=== PATIENT | male | born 1960 | race African-American/Black ===

== ENCOUNTER 2016-04-22 04:03 | Observation (INO) | payer MEDICAID, OTHER ==
[2016-04-22] VITALS (7 sets, daily range): BP systolic 105–138; BP diastolic 64–89; PULSE 78–99; RESP 18; TEMP 97.4–98.3; O2SAT 95–99
[~2016-04-22] VITALS: Ht 182.9 cm; Wt 85.5 kg
--- NOTE | 2016-04-22 04:25 | PD ---
HPI Chief Complaint: Chest Pain Time Seen by Provider: 04:20 Travel History International Travel<30 days: No Contact w/Intl Traveler<30days: No Traveled to known affect area: No History of Present Illness HPI The patient is a 56-year-old male who presents to the [facility] emergency department with a history of left-sided chest pain that he reports began 1 hour prior to arrival. He reports that it awoke him from sound sleep. He reports the pain is sharp in character. He denies having any radiation of the pain. He reports that he does have associated shortness of breath. He denies having any sweating or vomiting with this. He reports that the pain was initially 9 out of 10 in severity. After 1 nitroglycerin the pain level went down to an 8 out of 10 in severity. The patient was brought in by ambulance services and was also given 162 mg of aspirin by mouth. Patient's blood sugar prior to arrival was 79. The patient reports that he feels dizzy. The patient has a recent history of being admitted to the hospital at [facility] in [place] for congestive heart failure and liver failure. The patient reports that he quit drinking alcohol month ago. He reports that he quit smoking yesterday. The patient reports that he has a history of marijuana and crack use in the past, however he has not used any illicit drugs for the last year and a half. The patient denies any recent fevers, worsening cough, congestion, neck pain, abdominal pain, vomiting, diarrhea, urinary symptoms, or neurologic symptoms. PFSH Past Medical History Narrative Medical The patient's past medical history is significant for elevated liver enzymes, prior history of alcohol abuse, history of congestive heart failure. The patient denies any prior history of myocardial infarction. He denies ever having any stents placed. He has not had a cardiac catheterization. The patient has a history of hypertension, cirrhosis, hyperlipidemia, acid reflux, and renal insufficiency. High Cholesterol: Yes Cirrhosis: Yes Diminished Hearing: No GERD: Yes Hypertension: Yes Medical other: Yes (renal insufficiency) Influenza Vaccination: No Past Surgical History Narrative Surgical The patient denies any past surgical history. Social History Alcohol Use: No Tobacco Use: Yes Substance Use: No Allergies-Medications (Allergen,Severity, Reaction): Coded Allergies: Flu Vaccine (Verified Allergy, Unknown, 04/22/16) Reported Meds & Prescriptions Reported Meds & Active Scripts Active Reported Thiamine (Thiamine HCl) 100 Mg Tab 100 Mg PO DAILY Spironolactone 25 Mg Tab 25 Mg PO DAILY Metoprolol Succinate ER 24 HR (Metoprolol Succinate) 25 Mg Tab 25 Mg PO DAILY Lisinopril 5 Mg Tab 5 Mg PO DAILY Lactulose Liq (Lactulose (Encephalopathy) Liq) 19 Gm/15 Ml Soln 15 Gm PO TID Furosemide 40 Mg Tab 40 Mg PO DAILY Folic Acid 5 Mg Cap 1 Mg PO DAILY Atorvastatin (Atorvastatin Calcium) 40 Mg Tab 40 Mg PO HS Aspirin 81 Mg Tabdr 81 Mg PO DAILY Review of Systems Except as stated in HPI: all other systems reviewed are Neg General / Constitutional: No: Fever Eyes: No: Visual changes HENT: No: Headaches Cardiovascular: Positive: Chest Pain or Discomfort, Dyspnea on exertion, No: Diaphoresis Respiratory: No: Shortness of Breath Gastrointestinal: No: Nausea, Vomiting, Diarrhea, Abdominal Pain Genitourinary: No: Dysuria Musculoskeletal: No: Pain Skin: No Rash Neurologic: No: Weakness Psychiatric: No: Depression Endocrine: No: Polydipsia Hematologic/Lymphatic: No: Easy Bruising Physical Exam Narrative General: The patient is well-developed well-nourished male in no acute distress. Head and Neck exam: Head is normocephalic atraumatic. Eyes: Pupils are equal round and reactive to light. Nose: Midline septum with pink mucous membranes Mouth: Dentition unremarkable. Moist mucus membranes. Posterior oropharynx is not erythematous. No tonsillar hypertrophy. Uvula midline. Airway patent. Neck: No palpable lymphadenopathy. No nuchal rigidity. No thyromegaly. Cardiovascular: Regular rate and rhythm without murmurs, gallops, or rubs. No pulse deficit to the extremities on simultaneous auscultation and palpation of his radial artery. Lungs: Clear to auscultation bilaterally. No wheezes, rhonchi, or rales. Abdomen: Soft, without tenderness to palpation in all 4 quadrants of the abdomen. No guarding, rebound, or rigidity. Normal bowel sounds are audible. Extremities: No clubbing, cyanosis, or edema. 2+ pulses in all 4 extremities. No calf tenderness on palpation. Back: No spinous process tenderness to palpation. No costovertebral angle tenderness to palpation. Neurologic Exam: Grossly nonfocal. Skin Exam: No rash noted. Intact skin that is warm and dry. Data Data Last Documented VS Vital Signs Date Time Temp Pulse Resp B/P Pulse Ox O2 Delivery O2 Flow Rate FiO2 04/22/16 04:08 98.3 84 18 105/66 98 Orders Electrocardiogram (04/22/16 04:20) B-Type Natriuretic Peptide (04/22/16 04:20) Ckmb (Isoenzyme) Profile (04/22/16 04:20) Complete Blood Count With Diff (04/22/16 04:20) Comprehensive Metabolic Panel (04/22/16 04:20) Magnesium (Mg) (04/22/16 04:20) Prothrombin Time / Inr (Pt) (04/22/16 04:20) Act Partial Throm Time (Ptt) (04/22/16 04:20) Troponin I (04/22/16 04:20) Lipase (04/22/16 04:20) Chest, Single Ap (04/22/16 04:20) Ecg Monitoring (04/22/16 04:20) Bilateral Bp Monitoring (04/22/16 04:20) Iv Access Insert/Monitor (04/22/16 04:20) Oximetry (04/22/16 04:20) Oxygen Administration (04/22/16 04:20) Nitroglycerin 2% Oint (Nitroglycerin 2% (04/22/16 04:30) Sodium Chloride 0.9% Flush (Ns Flush) (04/22/16 04:30) Ammonia (04/22/16 04:22) Admit Order (Ed Use Only) (04/22/16 06:35) Labs Laboratory Tests Test 04/22/16 04:30 White Blood Count 4.2 TH/MM3 Red Blood Count 3.67 MIL/MM3 Hemoglobin 12.0 GM/DL Hematocrit 35.6 % Mean Corpuscular Volume 97.1 FL Mean Corpuscular Hemoglobin 32.7 PG Mean Corpuscular Hemoglobin 33.7 % Concent Red Cell Distribution Width 14.6 % Platelet Count 195 TH/MM3 Mean Platelet Volume 8.5 FL Neutrophils (%) (Auto) 49.7 % Lymphocytes (%) (Auto) 34.1 % Monocytes (%) (Auto) 8.5 % Eosinophils (%) (Auto) 6.9 % Basophils (%) (Auto) 0.8 % Neutrophils # (Auto) 2.1 TH/MM3 Lymphocytes # (Auto) 1.4 TH/MM3 Monocytes # (Auto) 0.4 TH/MM3 Eosinophils # (Auto) 0.3 TH/MM3 Basophils # (Auto) 0.0 TH/MM3 CBC Comment DIFF FINAL Differential Comment Prothrombin Time 12.4 SEC Prothromb Time International 1.1 RATIO Ratio Activated Partial 28.2 SEC Thromboplast Time Sodium Level 140 MEQ/L Potassium Level 4.3 MEQ/L Chloride Level 102 MEQ/L Carbon Dioxide Level 32.6 MEQ/L Anion Gap 5 MEQ/L Blood Urea Nitrogen 13 MG/DL Creatinine 1.00 MG/DL Estimat Glomerular Filtration 77 ML/MIN Rate Random Glucose 83 MG/DL Calcium Level 8.7 MG/DL Magnesium Level 2.1 MG/DL Total Bilirubin 1.9 MG/DL Aspartate Amino Transf 25 U/L (AST/SGOT) Alanine Aminotransferase 21 U/L (ALT/SGPT) Alkaline Phosphatase 188 U/L Ammonia 35 MCMOL/L Total Creatine Kinase 60 U/L Troponin I 0.05 NG/ML B-Type Natriuretic Peptide 1990 PG/ML Total Protein 7.0 GM/DL Albumin 2.8 GM/DL Lipase 234 U/L [facility] Medical Decision Making Medical Screen Exam Complete: Yes Emergency Medical Condition: Yes Medical Record Reviewed: Yes Interpretation(s) Last Impressions Chest X-Ray 04/22/16 0420 Signed Impressions: Service Date/Time: Friday, April 22, 2016 05:25 - CONCLUSION: No acute disease. Adithya Esparza MD Differential Diagnosis Acute coronary syndrome, versus congestive heart failure exacerbation, versus pleurisy, versus pneumonia, versus acid reflux Narrative Course During the course of the patients emergency department visit, the patients history, examination, and differential diagnosis were reviewed with the patient. The patient had IV access obtained and blood work sent for analysis. The patient was on a electric meter tester shop with oximetry and blood pressure monitoring. An EKG was done on arrival. The patient's EKG shows a sinus rhythm with a first-degree AV block, no acute ST segment elevation is noted, nonspecific T-wave abnormalities are noted, T waves are inverted in lead 1, aVL , V5, V6. The patient was provided nitroglycerin 1 inch the chest wall. The patient was given aspirin by ambulance services prior to arrival, 162 mg by mouth. The patients laboratory studies were reviewed and remarkable for a white count of 4.2, hemoglobin 12, platelets 195 with 8.5 monocytes, CMP is remarkable for CO2 of 32.6, GFR 77, total bilirubin 1.9, alkaline phosphatase 188, CPK 60, troponin I 0.05, BNP is 1990, ammonia level XXXV, lipase 234, PT PTT unremarkable. Radiology studies were reviewed and remarkable for a chest x-ray that shows no acute abnormality. The patient will be admitted to the hospital for continued evaluation and treatment, rule out serial cardiac enzyme protocol. The patient was agreeable with this plan. The patients results were discussed with the patient, including the plan of care. I explained that further testing and/ or monitoring is indicated based on the patients history, examination, and/ or laboratory findings. Therefore, I recommended admission for additional evaluation. The patient expressed understanding and was agreeable with this plan. The patient was admitted to the hospital in stable condition and [facility] Physician Communication Physician Communication The patient's case was discussed with Dr. Martinez who did agree to admit the patient for further evaluation and treatment at this time. Diagnosis Primary Impression: Chest pain at rest Additional Impression: History of congestive heart failure Admitting Information Admitting Physician Requests: Observation Claudia Espinal MD Apr 22, 2016 04:25
[2016-04-22] MEDS ORDERED: NITROGLYCERIN 2% OINT 1 GM PACKET TOP ONE (04:30)
[2016-04-22] MEDS ORDERED: SODIUM CHLORIDE 0.9% FLUSH 5 ML FLUSH IVF PRN (04:30)
[2016-04-22] MEDS ORDERED: FURO40TA PO (04:41)
[2016-04-22] MEDS ORDERED: FOLI5CAP PO (04:41)
[2016-04-22] MEDS ORDERED: METO25TA6 PO (04:41)
[2016-04-22] MEDS ORDERED: LACT10SO27 PO (04:41)
[2016-04-22] MEDS ORDERED: ATOR40TA16 PO (04:41)
[2016-04-22] MEDS ORDERED: ASPI1TAB69 PO (04:41)
[2016-04-22] MEDS ORDERED: LISI-519 PO (04:41)
[2016-04-22] MEDS ORDERED: THIA100T PO (04:41)
[2016-04-22] MEDS ORDERED: SPIR25TA PO (04:41)
[2016-04-22 04:44] LABS: AUTOMATED NEUTROPHIL # 2.1 TH/MM3 (1.8-7.7); BASOPHIL % 0.8 % (0.0-2.0); EOSINOPHIL # 0.3 TH/MM3 (0-0.4); EOSINOPHIL % 6.9 % (0.0-4.0); HEMATOCRIT 35.6 % (39.0-51.0); HEMO FLAGS DIFF FINAL; LYMPH % 34.1 % (9.0-44.0); LYMPHOCYTE # 1.4 TH/MM3 (1.0-4.8); MEAN CELL VOLUME 97.1 FL (80.0-100.0); MEAN CORPUSCULAR HEMOGLOBIN 32.7 PG (27.0-34.0); MEAN CORPUSCULAR HGB CONC 33.7 % (32.0-36.0); MONO % 8.5 % (0.0-8.0); NEUT % 49.7 % (16.0-70.0); PLATELET COUNT 195 TH/MM3 (150-450); RED BLOOD COUNT 3.67 MIL/MM3 (4.50-5.90); RED CELL DISTRIBUTION WIDTH 14.6 % (11.6-17.2); WHITE BLOOD COUNT 4.2 TH/MM3 (4.0-11.0)
[2016-04-22 05:01] LABS: ALT (GPT) 21 U/L (12-78); ANION GAP 5 MEQ/L (5-15); AST (GOT) 25 U/L (15-37); BICARBONATE 32.6 MEQ/L (21.0-32.0); BLOOD UREA NITROGEN 13 MG/DL (7-18); CHLORIDE 102 MEQ/L (98-107); GLOMERULAR FILTRATION RATE 77 ML/MIN (>89); MAGNESIUM 2.1 MG/DL (1.5-2.5); POTASSIUM 4.3 MEQ/L (3.5-5.1); SODIUM (NA) 140 MEQ/L (136-145)
[2016-04-22 05:02] LABS: APTT (PATIENT) 28.2 SEC (24.3-30.1); INTERNATIONAL NORMALIZED RATIO 1.1 RATIO; PROTHROMBIN TIME - PATIENT 12.4 SEC (9.8-11.6)
[2016-04-22 05:06] LABS: ALKALINE PHOSPHATASE 188 U/L (45-117); TOTAL BILIRUBIN ADULT 1.9 MG/DL (0.2-1.0)
[2016-04-22 05:11] LABS: CREATINE KINASE 60 U/L (39-308)
--- NOTE | 2016-04-22 05:39 | RADRPT ---
EXAM DATE/TIME: 04/22/2016 05:25 [place] COMPARISON: No previous studies available for comparison. INDICATIONS : Chest pain this morning. MEDICAL HISTORY : None. SURGICAL HISTORY : None. ENCOUNTER: Initial ACUITY: 1 day PAIN SCORE: 7/10 LOCATION: Bilateral chest FINDINGS: Cardiomegaly. Clear lungs. Osseous structures are intact. CONCLUSION: No acute disease. Adithya Esparza MD on April 22, 2016 at 5:37 Board Certified Radiologist. This report was verified electronically.
[2016-04-22] MEDS ORDERED: ACETAMINOPHEN 325 MG TAB PO PRN (07:00)
[2016-04-22] MEDS ORDERED: ONDANSETRON HCL 4 MG/2 ML VIAL IVP PRN (07:00)
[2016-04-22] MEDS ORDERED: ACETAMINOPHEN/HYDROcodone 325 MG/5 MG TAB PO PRN (07:00)
[2016-04-22] MEDS ORDERED: BISACODYL 10 MG SUPP PR PRN (07:00)
[2016-04-22] MEDS ORDERED: SODIUM CHLORIDE 0.9% FLUSH 5 ML FLUSH FLUSH PRN (07:00)
[2016-04-22] MEDS ORDERED: MORPHINE SULFATE 4 MG/ML INJ IV PRN (07:00)
[2016-04-22] MEDS ORDERED: METOPROLOL SUCCINATE 25 MG EXTENDED RELEASE TAB PO SCH (09:00)
[2016-04-22] MEDS ORDERED: LISINOPRIL 5 MG TAB PO SCH (09:00)
--- NOTE | 2016-04-22 09:18 | HHI.HP ---
[facility] Service [facility] Primary Care Physician No Primary Care Physician Admission Diagnosis Cp ro HI, h/o CHF Diagnoses: Chief Complaint: chest pain, shortness of breath Travel History International Travel<30 Days: No Contact w/Intl Traveler <30 Da: No Traveled to Known Affected Are: No History of Present Illness 56-year-old male with history of recent diagnosis of CHF, hepatitis, cirrhosis, HTN, HLD presents with acute onset of chest pain and shortness of breath that awoke him from his sleep last night. The patient is not the best historian. He locates the chest pain to the left anterior chest, no radiation, described as a sharp 9/10 ache, lasts ~5minutes, associated with palpitations, shortness of breath, lightheadedness, but no nausea/vomiting/diaphoresis. Denies fevers/ chills. He reports nonproductive cough. He was given nitro/aspirin en route with [facility] which relieved his pain. He is currently chest pain free. He reports he was recently hospitalized 1 month ago at [facility] for liver failure and heart failure. He is not sure which tests he had done at [facility]. He has no other medical complaints at this time. He does not follow with any local physicians/communications attendant. He reports compliance with all of his medications. Review of Systems Constitutional: COMPLAINS OF: Dizziness, DENIES: Diaphoretic episodes, Fever, Chills Endocrine: DENIES: Polydipsia, Polyuria, Polyphagia Eyes: DENIES: Blurred vision, Vision loss, Double Vision Ears, nose, mouth, throat: DENIES: Throat pain, Running Nose, Odynophagia Respiratory: COMPLAINS OF: Cough, Shortness of breath, DENIES: Wheezing, Sputum production Cardiovascular: COMPLAINS OF: Chest pain, Palpitations, Dyspnea on Exertion, Lower Extremity Edema, DENIES: Syncope Gastrointestinal: DENIES: Abdominal pain, Constipation, Diarrhea, Nausea, Vomiting Genitourinary: DENIES: Urinary frequency, Urgency, Dysuria Musculoskeletal: DENIES: Back pain, Neck pain Integumentary: DENIES: Pruritus, Rash Hematologic/lymphatic: DENIES: Bruising, Lymphadenopathy Immunologic/allergic: DENIES: Eczema, Urticaria Neurologic: COMPLAINS OF: Headache, DENIES: Abnormal gait, Localized weakness , Paresthesias Psychiatric: DENIES: Anxiety, Depression Past Family Social History Past Medical History hepatitis cirrhosis headaches hypertension hyperlipidemia CHF Past Surgical History Denies any prior surgeries. Reported Medications Thiamine (Thiamine HCl) 100 Mg Tab 100 Mg PO DAILY Spironolactone 25 Mg Tab 25 Mg PO DAILY Metoprolol Succinate ER 24 HR (Metoprolol Succinate) 25 Mg Tab 25 Mg PO DAILY Lisinopril 5 Mg Tab 5 Mg PO DAILY Lactulose Liq (Lactulose (Encephalopathy) Liq) 19 Gm/15 Ml Soln 15 Gm PO TID Furosemide 40 Mg Tab 40 Mg PO DAILY Folic Acid 5 Mg Cap 1 Mg PO DAILY Atorvastatin (Atorvastatin Calcium) 40 Mg Tab 40 Mg PO HS Aspirin 81 Mg Tabdr 81 Mg PO DAILY Allergies: Coded Allergies: Flu Vaccine (Verified Allergy, Unknown, 04/22/16) Active Ordered Medications Current Medications Medications (Trade) Dose Ordered Sig/Harish Route Start Time Stop Time Status Last Admin (NS Flush) 2 ml UNSCH PRN FLUSH 04/22/16 07:00 (NS Flush) 2 ml BID FLUSH 04/22/16 09:00 04/22/16 09:26 (Zofran Inj) 4 mg Q6H PRN IVP 04/22/16 07:00 (Dulcolax Supp) 10 mg DAILY PRN DC 04/22/16 07:00 (Tylenol) 650 mg Q6H PRN PO 04/22/16 07:00 ([place] 5-325 Mg) 1 tab Q4H PRN PO 04/22/16 07:00 (Morphine Inj) 2 mg Q3H PRN IV 04/22/16 07:00 (Ecotrin Ec) 81 mg DAILY PO 04/22/16 09:00 04/22/16 09:25 (Lipitor) 40 mg HS PO 04/22/16 21:00 (Folate) 1 mg DAILY PO 04/22/16 09:00 04/22/16 09:26 (Lasix) 40 mg DAILY PO 04/22/16 09:00 (Prinivil) 5 mg DAILY PO 04/22/16 09:00 (Toprol Xl) 25 mg DAILY PO 04/22/16 09:00 (Aldactone) 25 mg DAILY PO 04/22/16 09:00 (Vitamin B1) 100 mg DAILY PO 04/22/16 09:00 04/22/16 09:28 (Lactulose Liq) 15 ml TID PO 04/22/16 09:00 04/22/16 09:26 (Imdur) 30 mg DAILY@07 PO 04/23/16 10:00 UNV Family History Father with cancer Mother with diabetes, HTN, HLD Sister with diabetes Social History Tobacco use, smokes 1 PPD since age 13, he's trying to cut back Prior heavy alcohol use, 12+ beers a day, quit alcohol use 1 month ago just prior to last hospitalization Prior marijuana and crack use, quit over 1.5years ago Physical Exam Vital Signs Vital Signs Date Time Temp Pulse Resp B/P Pulse Ox O2 Delivery O2 Flow Rate FiO2 04/22/16 08:52 78 18 108/72 97 Room Air 04/22/16 04:08 98.3 84 18 105/66 98 Physical Exam GENERAL: Well-nourished, well-developed middle aged AA male patient in [facility]. SKIN: Warm and dry. No rash. HEAD: Normocephalic. Atraumatic. EYES: Pupils equal and round. No scleral icterus. No injection or drainage. ENT: No nasal bleeding or discharge. Mucous membranes pink and moist. NECK: Supple. Trachea midline. CARDIOVASCULAR: Regular rate and rhythm. S1, S2 noted. No murmur appreciated. RESPIRATORY: No accessory muscle use. Decreased breath sounds at the right base , otherwise clear to auscultation. Breath sounds equal bilaterally. GASTROINTESTINAL: Abdomen soft, non-tender, nondistended. Normoactive bowel sounds x4. MUSCULOSKELETAL: No obvious deformities. 1+ bilateral lower extremity edema. NEUROLOGICAL: Awake and alert. No obvious cranial nerve deficits. Motor grossly within normal limits. Normal speech. PSYCHIATRIC: Appropriate mood and affect; insight and judgment normal. Laboratory Laboratory Tests Test 04/22/16 04:30 White Blood Count 4.2 Red Blood Count 3.67 Hemoglobin 12.0 Hematocrit 35.6 Mean Corpuscular Volume 97.1 Mean Corpuscular Hemoglobin 32.7 Mean Corpuscular Hemoglobin 33.7 Concent Red Cell Distribution Width 14.6 Platelet Count 195 Mean Platelet Volume 8.5 Neutrophils (%) (Auto) 49.7 Lymphocytes (%) (Auto) 34.1 Monocytes (%) (Auto) 8.5 Eosinophils (%) (Auto) 6.9 Basophils (%) (Auto) 0.8 Neutrophils # (Auto) 2.1 Lymphocytes # (Auto) 1.4 Monocytes # (Auto) 0.4 Eosinophils # (Auto) 0.3 Basophils # (Auto) 0.0 CBC Comment DIFF FINAL Differential Comment Prothrombin Time 12.4 Prothromb Time International 1.1 Ratio Activated Partial 28.2 Thromboplast Time Sodium Level 140 Potassium Level 4.3 Chloride Level 102 Carbon Dioxide Level 32.6 Anion Gap 5 Blood Urea Nitrogen 13 Creatinine 1.00 Estimat Glomerular Filtration 77 Rate Random Glucose 83 Calcium Level 8.7 Magnesium Level 2.1 Total Bilirubin 1.9 Aspartate Amino Transf 25 (AST/SGOT) Alanine Aminotransferase 21 (ALT/SGPT) Alkaline Phosphatase 188 Ammonia 35 Total Creatine Kinase 60 Troponin I 0.05 B-Type Natriuretic Peptide 1989 Total Protein 7.0 Albumin 2.8 Lipase 234 Result Diagram: 04/22/1642904/22/16429 Imaging Last Impressions Chest X-Ray 04/22/16419 Signed Impressions: Service Date/Time: Friday, April 22, 2016 05:25 - CONCLUSION: No acute disease. Adithya Esparza MD Assessment and Plan Problem List: (1) Chest pain at rest ICD Code: R07.9 Status: Acute (2) History of congestive heart failure ICD Code: Z86.79 Status: Acute Assessment and Plan 56-year-old male with history of recent diagnosis of CHF, hepatitis, cirrhosis, HTN, HLD presents with acute onset of chest pain and shortness of breath that awoke him from his sleep last night. Chest Pain/Dyspnea: suspect acute CHF exacerbation. Unknown if systolic vs diastolic dysfunction, check Echocardiogram. Obtain records from recent hospitalization at [facility]. CXR images reviewed, unremarkable. BNP 1989. Initial troponin 0.05, rule out ACS with serial cardiac enzymes/EKG. Continue patient's metoprolol, lisinopril, lasix, spironolactone, statin, aspirin. However difficulty administering BP meds with borderline hypotension. Consult cardiology. Hepatitis/Cirrhosis with Hyperammonemia: patient unsure which hepatitis he has been diagnosed with. Continue patient's Lactulose 15mg tid. Needs outpatient f/ up with gastroenterology. HTN: chronic, BP borderline hypotensive. Continued BP meds with hold parameters. HLD: chronic, continue patient's statin. Headache/Lightheadedness: possibly due to borderline hypotension. Monitor BP. Tylenol/morphine prn pain. DVT Prophylaxis: teds/SCDs Written by Lindsay Martin, acting as scribe for Dr. Garcia on 04/22/16 at 09:07. The documentation accurately reflects the work performed [id number] by me Dr. Garcia on 04/22/16 at 09:07. Code Status Full Discussed Condition With Patient, PRINCIPAL SECURITY ARCHITECTLindsay Ward PA-C Apr 22, 2016 09:18 Alyx Garcia MD Apr 22, 2016 18:52
[2016-04-22] MEDS: ASPIRIN EC 81 MG TABEC PO SCH (09:25)
[2016-04-22] MEDS: LACTULOSE SYRUP 20 GM/30 ML CUP PO SCH ×3 (09:26→19:59)
[2016-04-22] MEDS: FOLIC ACID 1 MG TAB PO SCH (09:26)
[2016-04-22] MEDS: SODIUM CHLORIDE 0.9% FLUSH 5 ML FLUSH FLUSH SCH ×2 (09:26→21:20)
[2016-04-22] MEDS: THIAMINE HCL 100 MG TAB PO SCH (09:28)
--- NOTE | 2016-04-22 11:36 | MB ---
cc: CHRISTIANO BELLO M.D. DATE OF CONSULTATION: 04/22/2016 REASON FOR CONSULTATION Evaluation of chest discomfort. HISTORY OF PRESENT ILLNESS Darrion Thacker is a 56-year-old man who was just hospitalized at [facility] a little over a month ago in [place]. He moved down here to live with his sister. He was diagnosed with CHF, hepatitis, cirrhosis and hypertension and started on quite a few medications. The patient said last night he was a little short of breath and had some aching in his chest, he feels better now. Initial troponin was 0.05. He still smokes. He has cut down his drinking and has not used a crack or marijuana he says in a year and a half. He is currently not working and does not have any primary care providers or insurance. The patient is a poor historian. He cannot give me much details about the chest discomfort and describes it differently to me than he did to the other providers. It is not clear if he had a stress test or heart cath. He cannot recall either one. PAST MEDICAL HISTORY Past medical history includes: 1. CHF. 2. Hepatitis. 3. Cirrhosis. 4. Hypertension. ALLERGIES FLU VACCINE. FAMILY HISTORY Positive for diabetes and his father had cancer. SOCIAL HISTORY Smokes one-pack per day, started at age 13, now down to about half-pack per day. Prior 12 beers a day but he says he quit once he was diagnosed at [facility]. No use of marijuana, crack in a year and a half. PHYSICAL EXAMINATION GENERAL: A well-developed, well-nourished white male, in no acute distress. VITAL SIGNS: Charted. HEENT: Exam unremarkable. NECK: No JVD, no bruits. CHEST: Clear to auscultation. CARDIAC: PMI not palpable. S1-S2. Regular rate and rhythm. There may be a soft gallop. ABDOMEN: Soft, nontender. EXTREMITIES: No clubbing, cyanosis or edema. Pulses are intact. EKG Shows sinus rhythm, left atrial abnormality, LVH with LV strain type pattern. IMAGING STUDIES Chest x-ray shows cardiomegaly with clear lungs. LABORATORY DATA Hematocrit 35.1, INR 1.1, creatinine 1.0, alkaline phosphatase elevated at 188. Ammonia level elevated at 35. BNP elevated at 1990, albumin depressed at 2.8. Troponin nonspecific at 0.05. IMPRESSION A 56-year-old male with a history of cirrhosis and cardiomyopathy. He has had some chest discomfort, symptoms are difficult to pinpoint as to whether they are due to ischemia or not. Initial troponin is borderline. PLAN Plan is to finish ruling him out for ND. If he rules out will get a nuclear stress test. If he has significant ischemia will proceed with a diagnostic cath. In the meantime, try to get records from [facility]. Continue his statin, diuretic, MAYRA inhibitor, beta adelia, spirolactone and therapy for alcohol with thiamine, lactulose, etc. Will add Imdur 30 mg q. a.m. so he will be on two antianginal meds. Further therapy to be determined. MD KYLE Ivory/TLLouis /10:01 AM /11:15 AM
--- NOTE | 2016-04-22 11:39 | EKG ---
Date Performed: 04/22/2016 Time Performed: 04:05:57 PTAGE: 56 years EKG: Sinus rhythm WITH FIRST DEGREE AV BLOCK POSSIBLE LEFT ATRIAL ENLARGEMENT MODERATE T-WAVE ABNORMALITY, CONSIDER LA TERAL ISCHEMIA ABNORMAL ECG NO PREVIOUS TRACING DOCTOR: Harish Flannery Interpretating Date/Time 04/22/2016 11:37:30
[2016-04-22] MEDS: FUROSEMIDE 40 MG TAB PO SCH (15:41)
[2016-04-22] MEDS: SPIRONOLACTONE 25 MG TAB PO SCH (15:41)
--- NOTE | 2016-04-22 20:00 | EC ---
Study Study Date:04/22/2016 STUDY CONCLUSIONS SUMMARY - Left ventricle: The cavity size was moderately dilated. Wall thickness was normal. Systolic function was severely reduced. The estimated ejection fraction was in the range of 20% to 25%. Diffuse hypokinesis. - Aortic valve: Valve area: 2.31cm^2(VTI). Valve area: 2.31cm^2 (Vmax). - Mitral valve: Moderate regurgitation. - Left atrium: The atrium was mildly dilated. - Right ventricle: The cavity size was dilated. Wall thickness was normal. - Right atrium: The atrium was dilated. - Tricuspid valve: Severe regurgitation. - Pulmonic valve: Mild regurgitation. Impressions: Dilated cardiomyopathy. If LV function is below 40, please consider prescribing an ACEI or ARB or document rationale for non-use. PROCEDURE DATA STUDY STATUS: Elective. Procedure: Transthoracic echocardiography. Image quality was good. Scanning was performed from the parasternal, apical, and subcostal acoustic windows. Study completion: The patient tolerated the procedure well. Transthoracic echocardiography. M-mode, complete 2D, complete spectral Doppler, and color Doppler. Height: Height: 72in. Weight: Weight: 187.6lb. Body mass index: BMI: 25.5kg/m^2. Body surface area: BSA: 2.08m^2. Patient status: Inpatient. CARDIAC ANATOMY LEFT VENTRICLE: The cavity size was moderately dilated. Wall thickness was normal. Systolic function was severely reduced. The estimated ejection fraction was in the range of 20% to 25%. Diffuse hypokinesis. AORTIC VALVE: Trileaflet; normal thickness leaflets. Doppler: Transvalvular velocity was within the normal range. There was no stenosis. No regurgitation. Valve area: 2.31cm^2(VTI). Indexed valve area: 1.11cm^2/m^2 (VTI). Valve area: 2.31cm^2 (Vmax). Indexed valve area: 1.11cm^2/m^2 (Vmax). Mean gradient: 2mm Hg (S). AORTA: Aortic root: The aortic root was normal in size. MITRAL VALVE: Structurally normal valve. Doppler: Transvalvular velocity was within the normal range. There was no evidence for stenosis. Moderate regurgitation. Peak gradient: 5mm Hg (D). LEFT ATRIUM: The atrium was mildly dilated. RIGHT VENTRICLE: The cavity size was dilated. Wall thickness was normal. PULMONIC VALVE: Doppler: Transvalvular velocity was within the normal range. There was no evidence for stenosis. Mild regurgitation. TRICUSPID VALVE: Structurally normal valve. Doppler: Transvalvular velocity was within the normal range. Severe regurgitation. PULMONARY ARTERY: The main pulmonary artery was normal-sized. Systolic pressure was within the normal range. RIGHT ATRIUM: The atrium was dilated. PERICARDIUM: There was no pericardial effusion. SYSTEMIC VEINS: Inferior vena cava: The vessel was dilated. Patient weight: 187.6lb _Ejection fraction:_ 65-75% _Fractional shortening:_ 32% up to 5Kg 5-11.5Kg 11.6-22.9Kg 23-45Kg 45-57Kg Aortic Root 7-13 <17 13-22 17-27 17-27 LA diam 6-13 <23 24-38 33-47 37-40 RVID 10-17 7-15 7-15 7-18 8-17 LVIDd 12-22 <32 24-38 33-47 37-40 LVPW 2-4 3-6 5-7 6-8 7-8 IVS 2-4 3-6 5-7 6-8 7-8 BASIC MEASUREMENTS ADULT NORMAL Left ventricle LV internal dimension, ED, chordal *62.5 mm 43-52 level, PLAX LV internal dimension, ES, chordal *56.3 mm 23-38 level, PLAX Fractional shortening, chordal level, *10 % >29 PLAX LV posterior wall thickness, ED 9.11 mm IVS/LVPW ratio, ED 1 <1.3 Volume, ED, MOD, 1-plane 254 ml Volume, ES, MOD, 1-plane 187 ml Ejection fraction, MOD, 1-plane 26 % Stroke volume, MOD, 1-plane 67 ml Volume index, ED, MOD, 1-plane 122 ml/m^2 Volume index, ES, MOD, 1-plane 90 ml/m^2 Stroke index, MOD, 1-plane 32.2 ml/m^2 Volume, ED, MOD, 2-plane 259 ml Volume, ES, MOD, 2-plane 197 ml Ejection fraction, MOD, 2-plane 24 % Stroke volume, MOD, 2-plane 62 ml Volume index, ED, MOD, 2-plane 125 ml/m^2 Volume index, ES, MOD, 2-plane 95 ml/m^2 Stroke index, MOD, 2-plane 29.8 ml/m^2 Ventricular septum Septal thickness, ED 9.11 mm Aorta Root diameter, ED 29 mm Left atrium Anterior-posterior dimension 39 mm Anterior-posterior dimension index 1.88 cm/m^2 <2.2 DOPPLER MEASUREMENTS ADULT NORMAL Main pulmonary artery Pressure, S 27 mm Hg =30 Aortic valve Peak velocity, S 92.4 cm/s Mean velocity, S 71.7 cm/s VTI, S 15.1 cm Mean gradient, S 2 mm Hg Valve area, VTI 2.31 cm^2 Valve area index, VTI 1.11 cm^2/m^2 Valve area, Vmax 2.31 cm^2 Valve area index, Vmax 1.11 cm^2/m^2 Mitral valve Peak E-wave velocity 116 cm/s Peak A-wave velocity 15.8 cm/s Peak gradient, D 5 mm Hg Peak E/A ratio 7.3 Tricuspid valve Regurgitant peak velocity 244 cm/s Peak RV-RA gradient, S 24 mm Hg Maximal regurgitant velocity 244 cm/s Systemic veins Estimated CVP 5 mm Hg Right ventricle RV pressure, S 29 mm Hg <30 Pulmonic valve Peak velocity, S 61.7 cm/s LEGEND: Mean values are shown as u=mean value. Asterisk (*) walker values outside specified normal range. Prepared and signed by Rico Espinal [id number]
[2016-04-22] MEDS ORDERED: ATORVASTATIN 40 MG TAB PO SCH (21:00)
[2016-04-23 00:36] VITALS: BP 133/92; PULSE 82; RESP 18; TEMP 97.9; O2SAT 97
[2016-04-23 06:06] VITALS: BP 128/82; PULSE 89; RESP 20; O2SAT 94
[2016-04-23 07:57] LABS: AUTOMATED NEUTROPHIL # 2.6 TH/MM3 (1.8-7.7); BASOPHIL % 0.9 % (0.0-2.0); EOSINOPHIL # 0.2 TH/MM3 (0-0.4); EOSINOPHIL % 5.4 % (0.0-4.0); HEMATOCRIT 36.2 % (39.0-51.0); HEMO FLAGS DIFF FINAL; LYMPH % 27.8 % (9.0-44.0); LYMPHOCYTE # 1.3 TH/MM3 (1.0-4.8); MEAN CELL VOLUME 97.8 FL (80.0-100.0); MEAN CORPUSCULAR HGB CONC 32.7 % (32.0-36.0); NEUT % 57.9 % (16.0-70.0); PLATELET COUNT 190 TH/MM3 (150-450); RED BLOOD COUNT 3.71 MIL/MM3 (4.50-5.90); RED CELL DISTRIBUTION WIDTH 14.4 % (11.6-17.2); WHITE BLOOD COUNT 4.5 TH/MM3 (4.0-11.0)
[2016-04-23 08:00] VITALS: PULSE 76
[2016-04-23 08:18] VITALS: BP 120/89; PULSE 80; RESP 18; TEMP 97.9; O2SAT 96
[2016-04-23 08:18] LABS: ALT (GPT) 21 U/L (12-78); ANION GAP 8 MEQ/L (5-15); AST (GOT) 24 U/L (15-37); BLOOD UREA NITROGEN 14 MG/DL (7-18); CHLORIDE 102 MEQ/L (98-107); GLOMERULAR FILTRATION RATE 103 ML/MIN (>89); POTASSIUM 4.3 MEQ/L (3.5-5.1); SODIUM (NA) 138 MEQ/L (136-145)
[2016-04-23 08:21] LABS: ALKALINE PHOSPHATASE 176 U/L (45-117); TOTAL BILIRUBIN ADULT 1.6 MG/DL (0.2-1.0)
--- NOTE | 2016-04-23 09:12 | PD.CARD.PN ---
Subjective Subjective Remarks Feels better. No typical angina Objective Medications Current Medications Medications (Trade) Dose Ordered Sig/Harish Route Start Time Stop Time Status Last Admin (NS Flush) 2 ml UNSCH PRN FLUSH 04/22/16 07:00 (NS Flush) 2 ml BID FLUSH 04/22/16 09:00 04/22/16 21:20 (Zofran Inj) 4 mg Q6H PRN IVP 04/22/16 07:00 (Dulcolax Supp) 10 mg DAILY PRN [place] 04/22/16 07:00 (Tylenol) 650 mg Q6H PRN PO 04/22/16 07:00 ([place] 5-325 Mg) 1 tab Q4H PRN PO 04/22/16 07:00 (Morphine Inj) 2 mg Q3H PRN IV 04/22/16 07:00 (Ecotrin Ec) 81 mg DAILY PO 04/22/16 09:00 04/22/16 09:25 (Lipitor) 40 mg HS PO 04/22/16 21:00 04/22/16 21:20 (Folate) 1 mg DAILY PO 04/22/16 09:00 04/22/16 09:26 (Lasix) 40 mg DAILY PO 04/22/16 09:00 04/22/16 15:41 (Aldactone) 25 mg DAILY PO 04/22/16 09:00 04/22/16 15:41 (Vitamin B1) 100 mg DAILY PO 04/22/16 09:00 04/22/16 09:28 (Lactulose Liq) 15 ml TID PO 04/22/16 09:00 04/22/16 19:59 (Imdur) 30 mg DAILY@07 PO 04/23/16 10:00 (Prinivil) 10 mg DAILY PO 04/24/16 09:00 UNV (Toprol Xl) 50 mg DAILY PO 04/24/16 09:00 UNV Vital Signs / I&O Vital Signs Date Time Temp Pulse Resp B/P Pulse Ox O2 Delivery O2 Flow Rate FiO2 04/23/16 08:18 97.9 80 18 120/89 96 04/23/16 06:06 89 20 128/82 94 04/23/16 00:36 97.9 82 18 133/92 97 04/22/16 20:00 78 04/22/16 19:31 97.9 99 18 127/89 99 04/22/16 12:29 80 18 138/64 96 04/22/16 10:33 97.4 85 18 114/72 95 04/22/16 09:30 86 Physical Exam GENERAL: Well developed, well nourished. No acute distress. HEENT: Jugular venous pressure upper normal. CHEST: Lungs clear to auscultation bilaterally. Unlabored respiratory effort. CARDIAC: Regular rate and rhythm. Soft S3. Soft systolic murmur ABDOMEN: Soft, nontender, no hepatosplenomegaly. Bowel sounds present. EXTREMITIES: No clubbing, cyanosis, or edema. Laboratory Laboratory Tests Test 04/22/16 04/22/16 04/23/16 10:52 17:05 06:14 Troponin I 0.05 NG/ML 0.04 NG/ML White Blood Count 4.5 TH/MM3 Red Blood Count 3.71 MIL/MM3 Hemoglobin 11.9 GM/DL Hematocrit 36.2 % Mean Corpuscular Volume 97.8 FL Mean Corpuscular Hemoglobin 32.0 PG Mean Corpuscular Hemoglobin 32.7 % Concent Red Cell Distribution Width 14.4 % Platelet Count 190 TH/MM3 Mean Platelet Volume 8.9 FL Neutrophils (%) (Auto) 57.9 % Lymphocytes (%) (Auto) 27.8 % Monocytes (%) (Auto) 8.0 % Eosinophils (%) (Auto) 5.4 % Basophils (%) (Auto) 0.9 % Neutrophils # (Auto) 2.6 TH/MM3 Lymphocytes # (Auto) 1.3 TH/MM3 Monocytes # (Auto) 0.4 TH/MM3 Eosinophils # (Auto) 0.2 TH/MM3 Basophils # (Auto) 0.0 TH/MM3 CBC Comment DIFF FINAL Differential Comment Sodium Level 138 MEQ/L Potassium Level 4.3 MEQ/L Chloride Level 102 MEQ/L Carbon Dioxide Level 28.0 MEQ/L Anion Gap 8 MEQ/L Blood Urea Nitrogen 14 MG/DL Creatinine 0.92 MG/DL Estimat Glomerular Filtration 103 ML/MIN Rate Random Glucose 84 MG/DL Calcium Level 9.0 MG/DL Total Bilirubin 1.6 MG/DL Aspartate Amino Transf 24 U/L (AST/SGOT) Alanine Aminotransferase 21 U/L (ALT/SGPT) Alkaline Phosphatase 176 U/L B-Type Natriuretic Peptide 2345 PG/ML Total Protein 6.7 GM/DL Albumin 2.6 GM/DL Assessment and Plan Problem List: (1) Atypical chest pain Assessment and Plan: Troponins negative. Doubt ischemia. (2) Systolic congestive heart failure with reduced left ventricular function, NYHA class 3 Assessment and Plan: Compensated (3) Dilated cardiomyopathy Assessment and Plan: Severe 4-chamber with EF 20%. Meds adjusted. (4) Alcohol abuse Assessment and Plan: Claims to have stopped Assessment and Plan OK with me to DC home. See med adjustments Rico Espinal MD Apr 23, 2016 09:12
[2016-04-23] MEDS: LACTULOSE SYRUP 20 GM/30 ML CUP PO SCH (09:38)
[2016-04-23] MEDS: SPIRONOLACTONE 25 MG TAB PO SCH (09:39)
[2016-04-23] MEDS ORDERED: ISOS30TA3 PO (09:39)
[2016-04-23] MEDS ORDERED: LISI-519 PO (09:39)
[2016-04-23] MEDS: THIAMINE HCL 100 MG TAB PO SCH (09:39)
[2016-04-23] MEDS: FOLIC ACID 1 MG TAB PO SCH (09:39)
[2016-04-23] MEDS: FUROSEMIDE 40 MG TAB PO SCH (09:39)
[2016-04-23] MEDS ORDERED: METO25TA6 PO (09:39)
[2016-04-23] MEDS: ASPIRIN EC 81 MG TABEC PO SCH (09:39)
[2016-04-23] MEDS ORDERED: ISOSORBIDE MONONITRATE 30 MG TAB PO SCH (10:00)
--- NOTE | 2016-04-23 11:22 | HHI.DCPOC ---
Discharge Care Plan Diagnosis: (1) Atypical chest pain (2) Systolic congestive heart failure with reduced left ventricular function, NYHA class 3 Your Health Problems Are: Chest Pain Shortness of Breath Goals to Promote Your Health * To prevent worsening of your condition and complications * To maintain your health at the optimal level Directions to Meet Your Goals Take your medications as prescribed Follow your dietary instruction Follow activity as directed Keep your appointments as scheduled Take your immunizations and boosters as scheduled If your symptoms worsen call your PCP, if no PCP go to Urgent Care Center or Emergency Room Smoking is Dangerous to Your Health. Avoid second hand smoke Call the 24-hour hour crisis hotline for domestic abuse at Lindsay Martin PA-C Apr 23, 2016 11:22 Alyx Garcia MD Apr 23, 2016 18:03
--- NOTE | 2016-04-23 11:28 | HHI.PR ---
Subjective Remarks Follow up for chest pain, shortness of breath, with CHF. The patient reports feeling better today, no further chest pain or shortness of breath. He had a headache last night however this went away on its own. He has no new medical complaints. He has been cleared by cardiology for discharge. Objective Vitals Vital Signs Date Time Temp Pulse Resp B/P Pulse Ox O2 Delivery O2 Flow Rate FiO2 04/23/16 08:18 97.9 80 18 120/89 96 04/23/16 08:00 76 04/23/16 06:06 89 20 128/82 94 04/23/16 00:36 97.9 82 18 133/92 97 04/22/16 20:00 78 04/22/16 19:31 97.9 99 18 127/89 99 04/22/16 12:29 80 18 138/64 96 Result Diagram: 04/23/16 0614 04/23/1614 Imaging Last Impressions Chest X-Ray 04/22/16 0420 Signed Impressions: Service Date/Time: Friday, April 22, 2016 05:25 - CONCLUSION: No acute disease. Adithya Esparza MD Objective Remarks GENERAL: Well-nourished, well-developed middle aged AA male patient in [facility]. SKIN: Warm and dry. No rash. HEAD: Normocephalic. Atraumatic. NECK: Supple. Trachea midline. CARDIOVASCULAR: Regular rate and rhythm. S1, S2 noted. Soft 1/6 systolic murmur noted. RESPIRATORY: No accessory muscle use. Clear to auscultation. Breath sounds equal bilaterally. GASTROINTESTINAL: Abdomen soft, non-tender, nondistended. Normoactive bowel sounds x4. MUSCULOSKELETAL: No obvious deformities. Minimal trace BLE edema. NEUROLOGICAL: Awake and alert. No obvious cranial nerve deficits. Motor grossly within normal limits. Normal speech. PSYCHIATRIC: Appropriate mood and affect; insight and judgment normal. Medications and IVs Current Medications Medications (Trade) Dose Ordered Sig/Harish Route Start Time Stop Time Status Last Admin (NS Flush) 2 ml UNSCH PRN FLUSH 04/22/16 07:00 (NS Flush) 2 ml BID FLUSH 04/22/16 09:00 04/22/16 21:20 (Zofran Inj) 4 mg Q6H PRN IVP 04/22/16 07:00 (Dulcolax Supp) 10 mg DAILY PRN [place] 04/22/16 07:00 (Tylenol) 650 mg Q6H PRN PO 04/22/16 07:00 ([place] 5-325 Mg) 1 tab Q4H PRN PO 04/22/16 07:00 (Morphine Inj) 2 mg Q3H PRN IV 04/22/16 07:00 (Ecotrin Ec) 81 mg DAILY PO 04/22/16 09:00 04/23/16 09:39 (Lipitor) 40 mg HS PO 04/22/16 21:00 04/22/16 21:20 (Folate) 1 mg DAILY PO 04/22/16 09:00 04/23/16 09:39 (Lasix) 40 mg DAILY PO 04/22/16 09:00 04/23/16 09:39 (Aldactone) 25 mg DAILY PO 04/22/16 09:00 04/23/16 09:39 (Vitamin B1) 100 mg DAILY PO 04/22/16 09:00 04/23/16 09:39 (Lactulose Liq) 15 ml TID PO 04/22/16 09:00 04/23/16 09:38 (Imdur) 30 mg DAILY@07 PO 04/23/16 10:00 04/23/16 09:43 (Prinivil) 10 mg DAILY PO 04/24/16 09:00 (Toprol Xl) 50 mg DAILY PO 04/24/16 09:00 Urinary Catheter: No Vascular Central Line Catheter: No A/P Problem List: (1) Chest pain at rest ICD Code: R07.9 Status: Acute (2) History of congestive heart failure ICD Code: Z86.79 Status: Acute Assessment and Plan 56-year-old male with history of recent diagnosis of CHF, hepatitis, cirrhosis, HTN, HLD presents with acute onset of chest pain and shortness of breath that awoke him from his sleep last night. Atypical Chest Pain/Dyspnea with acute systolic CHF exacerbation: Echocardiogram showed EF 20-25%. Obtain records from recent hospitalization at [facility]. CXR images reviewed, unremarkable. BNP 1989. Ruled out ACS with negative serial cardiac enzymes/EKG. Continue patient's metoprolol, lisinopril, lasix, spironolactone, statin, aspirin. Consult cardiology, medications adjusted , increased metoprolol XL to 50mg qd, lisinopril to 10mg qd, added Imdur 30mg daily. No further chest pains/SOB, cleared for discharge by cardiology. Hepatitis/Cirrhosis with Hyperammonemia: patient unsure which hepatitis he has been diagnosed with. Continue patient's Lactulose 15mg tid. Needs outpatient f/ up with gastroenterology. HTN: chronic, BP borderline hypotensive. Continued BP meds with hold parameters. HLD: chronic, continue patient's statin. Headache/Lightheadedness: possibly due to borderline hypotension. Monitor BP. Tylenol/morphine prn pain. DVT Prophylaxis: teds/SCDs Written by Lindsay Martin, acting as scribe for Dr. Garcia on 04/23/16 at 11:28. The documentation accurately reflects the work performed [id number] by me Dr. Garcia on 04/23/16 at 11:28. Discharge Planning Discharge patient to home Condition on discharge: Improved Heart Healthy Diet as tolerated Ad Lovely activity Rx written: Imdur 30mg daily, lisinopril 10mg daily, metoprolol XL 50mg daily Follow-up with primary care physician and cardiology within 1 week Lindsay Martin PA-C Apr 23, 2016 11:28 Alyx Garcia MD Apr 23, 2016 18:02
[2016-04-24] MEDS ORDERED: METOPROLOL SUCCINATE 25 MG EXTENDED RELEASE TAB PO SCH (09:00)
[2016-04-24] MEDS ORDERED: LISINOPRIL 5 MG TAB PO SCH (09:00)
[2016-05-27] MEDS ORDERED: LACT10SO PO (11:46)
[2016-05-27] MEDS ORDERED: PROT40TA PO (11:46)
[2016-05-27] MEDS ORDERED: ISOS30TA3 PO (12:00)
[2016-05-27] MEDS ORDERED: METO25TA6 PO (12:00)
[2016-05-27] MEDS ORDERED: VENTAER INH (12:03)
[2016-06-27] MEDS ORDERED: METH125I2 IM (10:18)
[2016-06-27] MEDS ORDERED: ADVA500A INH (10:19)
[2016-06-27] MEDS ORDERED: LISI-519 PO (10:30)
[2016-06-27] MEDS ORDERED: METO50TA PO (10:32)
== END 2016-04-23 15:20 | disposition home or self-care (01) ==
LOC: NEPE 04:03 → NEDA 06:41 → NEPHCDU 09:46
PROVIDERS: ADMIT Hospitalist; ATTEND Hospitalist
DX: I11.0 Hypertensive heart disease with heart failure (principal); I50.20 Unspecified systolic (congestive) heart failure; I42.0 Dilated cardiomyopathy; R07.89 Other chest pain; R06.02 Shortness of breath; E78.5 Hyperlipidemia, unspecified; K74.60 Unspecified cirrhosis of liver; K75.9 Inflammatory liver disease, unspecified; N28.9 Disorder of kidney and ureter, unspecified; K21.9 Gastro-esophageal reflux disease without esophagitis; F17.210 Nicotine dependence, cigarettes, uncomplicated; F10.10 Alcohol abuse, uncomplicated; R42 Dizziness and giddiness
CPT/HCPCS: 71010; 80053; 82140; 82550; 83690; 83735; 83880; 84484; 85025; 85610; 85730; 93005; 93306; 99285; G0378

== ENCOUNTER 2016-05-16 10:31 | Inpatient (IN) | payer MEDICAID, OTHER ==
[~2016-05-16 10:31] MED LIST: ASPI1TAB69 PO; ATOR40TA16 PO; FOLI5CAP PO; FURO40TA PO; ISOS30TA3 PO; LACT10SO27 PO; LISI-519 PO; METO25TA6 PO; SPIR25TA PO; THIA100T PO
[2016-05-16 10:34] VITALS: BP 122/86; PULSE 76; RESP 20; TEMP 97.3; O2SAT 96
--- NOTE | 2016-05-16 11:27 | RADRPT ---
EXAM DATE/TIME: 05/16/2016 11:27 [place] COMPARISON: No previous studies available for comparison. INDICATIONS : Left side chest pains MEDICAL HISTORY : None. SURGICAL HISTORY : None. ENCOUNTER: Initial ACUITY: 1 day PAIN SCORE: 9/10 LOCATION: Left chest FINDINGS: A single view of the chest demonstrates the lungs to be symmetrically aerated without evidence of mas s, infiltrate or effusion. The cardiomediastinal contours are unremarkable. Osseous structures are intact. CONCLUSION: Normal examination except for questionable enlargement of the cardiac silhouette. Sonu Baca MD on May 16, 2016 at 11:22 Board Certified Radiologist. This report was verified electronically.
--- NOTE | 2016-05-16 11:34 | PD ---
HPI Chief Complaint: Chest Pain Time Seen by Provider: 11:33 Travel History International Travel<30 days: No Contact w/Intl Traveler<30days: No Traveled to known affect area: No History of Present Illness HPI 56-year-old male with history of hypertension, angina, liver failure, CHF, presents to the emergency department for evaluation of "heart pain" radiating to his right shoulder and neck intermittently occurring since March. Patient states that there are no exacerbating or alleviating factors. States that he "can just be sitting there" and happens. Denies any nausea or vomiting. Patient is accompanied by family member who states he has been increasingly confused. He has not been acting right. Is also concerned about increased girth of the abdomen. PFSH Past Medical History Asthma: No Blood Disorders: No Heart Rhythm Problems: No Cancer: No Cardiovascular Problems: Yes High Cholesterol: Yes Chemotherapy: No Chest Pain: No Congestive Heart Failure: Yes (hx of) Cirrhosis: Yes COPD: No Diabetes: No Diminished Hearing: No GERD: Yes Genitourinary: No Hypertension: Yes Immune Disorder: No Musculoskeletal: No Neurologic: No Psychiatric: No Reproductive: No Respiratory: No Radiation Therapy: No Sleep Apnea: No Thyroid Disease: No Social History Alcohol Use: No Tobacco Use: Yes Substance Use: No Allergies-Medications (Allergen,Severity, Reaction): Coded Allergies: Flu Vaccine (Verified Allergy, Unknown, 05/16/16) Reported Meds & Prescriptions Reported Meds & Active Scripts Active Metoprolol Succinate ER 24 HR (Metoprolol Succinate) 25 Mg Tab 50 Mg PO DAILY Lisinopril 5 Mg Tab 10 Mg PO DAILY Isosorbide Mononitrate ER (Isosorbide Mononitrate) 30 Mg [place] 30 Mg PO DAILY@07 Reported Thiamine (Thiamine HCl) 100 Mg Tab 100 Mg PO DAILY Spironolactone 25 Mg Tab 25 Mg PO DAILY Lactulose Liq (Lactulose (Encephalopathy) Liq) 19 Gm/15 Ml Soln 15 Gm PO TID Furosemide 40 Mg Tab 40 Mg PO DAILY Folic Acid 5 Mg Cap 1 Mg PO DAILY Atorvastatin (Atorvastatin Calcium) 40 Mg Tab 40 Mg PO HS Aspirin 81 Mg Tabdr 81 Mg PO DAILY Review of Systems Except as stated in HPI: all other systems reviewed are Neg Physical Exam Narrative GENERAL: Well-nourished male patient, in no acute distress SKIN: Warm and dry. HEAD: Atraumatic. Normocephalic. EYES: Pupils equal and round. No scleral icterus. No injection or drainage. ENT: No nasal bleeding or discharge. Mucous membranes pink and moist. NECK: Trachea midline. No JVD. CARDIOVASCULAR: Regular rate and rhythm. No murmur appreciated. RESPIRATORY: No accessory muscle use. Clear to auscultation. Breath sounds equal bilaterally. GASTROINTESTINAL: Abdomen soft, non-tender, nondistended. Hepatic and splenic margins not palpable. MUSCULOSKELETAL: No obvious deformities. No clubbing. No cyanosis. No edema. NEUROLOGICAL: Awake and alert. No obvious cranial nerve deficits. Motor grossly within normal limits. Normal speech. PSYCHIATRIC: Appropriate mood and affect; insight and judgment normal. Data Data Last Documented VS Vital Signs Date Time Temp Pulse Resp B/P Pulse Ox O2 Delivery O2 Flow Rate FiO2 05/16/16 14:00 86 16 116/89 99 Room Air 05/16/16 10:34 97.3 Orders Electrocardiogram (05/16/16 11:00) Complete Blood Count With Diff (05/16/16 11:00) Basic Metabolic Panel (Bmp) (05/16/16 11:00) Ckmb (Isoenzyme) Profile (05/16/16 11:00) Troponin I (05/16/16 11:00) Chest, Single Ap (05/16/16 11:00) Coag Profile (05/16/16 11:26) Magnesium (Mg) (05/16/16 11:26) Ammonia (05/16/16 11:32) B-Type Natriuretic Peptide (05/16/16 14:33) Lactulose Liq (Lactulose Liq) (05/16/16 15:30) Us Abdomen Gallbladder (05/16/16 15:46) Admit Order (Ed Use Only) (05/16/16 15:46) Hepatic Functional Panel (05/16/16 15:49) Admit To Inpatient (05/16/16 ) Inpatient Certification (05/16/16 ) Diet Heart Healthy (05/16/16 Dinner) Activity Bed Rest (05/16/16 15:45) Vital Signs (Adult) TWILA.Q4H (05/16/16 15:45) Labs Laboratory Tests Test 05/16/16 11:40 White Blood Count 4.4 TH/MM3 Red Blood Count 4.00 MIL/MM3 Hemoglobin 12.0 GM/DL Hematocrit 37.4 % Mean Corpuscular Volume 93.4 FL Mean Corpuscular Hemoglobin 30.1 PG Mean Corpuscular Hemoglobin 32.2 % Concent Red Cell Distribution Width 14.5 % Platelet Count 171 TH/MM3 Mean Platelet Volume 9.1 FL Neutrophils (%) (Auto) 43.9 % Lymphocytes (%) (Auto) 36.3 % Monocytes (%) (Auto) 16.1 % Eosinophils (%) (Auto) 3.2 % Basophils (%) (Auto) 0.5 % Neutrophils # (Auto) 1.9 TH/MM3 Lymphocytes # (Auto) 1.6 TH/MM3 Monocytes # (Auto) 0.7 TH/MM3 Eosinophils # (Auto) 0.1 TH/MM3 Basophils # (Auto) 0.0 TH/MM3 CBC Comment DIFF FINAL Differential Comment Prothrombin Time 14.2 SEC Prothromb Time International 1.3 RATIO Ratio Activated Partial 30.0 SEC Thromboplast Time Sodium Level 143 MEQ/L Potassium Level 3.7 MEQ/L Chloride Level 105 MEQ/L Carbon Dioxide Level 30.4 MEQ/L Anion Gap 8 MEQ/L Blood Urea Nitrogen 7 MG/DL Creatinine 0.89 MG/DL Estimat Glomerular Filtration 107 ML/MIN Rate Random Glucose 64 MG/DL Calcium Level 8.7 MG/DL Magnesium Level 1.6 MG/DL Total Bilirubin 1.2 MG/DL Direct Bilirubin 0.8 MG/DL Indirect Bilirubin 0.4 MG/DL Aspartate Amino Transf 17 U/L (AST/SGOT) Alanine Aminotransferase 12 U/L (ALT/SGPT) Alkaline Phosphatase 141 U/L Ammonia 44 MCMOL/L Total Creatine Kinase 97 U/L Troponin I 0.04 NG/ML B-Type Natriuretic Peptide 1888 PG/ML Total Protein 7.2 GM/DL Albumin 3.2 GM/DL MDM Medical Decision Making Medical Screen Exam Complete: Yes Emergency Medical Condition: Yes Medical Record Reviewed: Yes Differential Diagnosis ACS versus pleuritic pain versus costochondritis versus electrolyte abnormality versus liver failure versus CHF Narrative Course 56-year-old male presents to emergency department for evaluation. Workup initiated.. Once a medical bed is available patient will be transferred and care assumed that provider. Magdalena De Santiago May 16, 2016 11:34
[2016-05-16 12:21] LABS: AUTOMATED NEUTROPHIL # 1.9 TH/MM3 (1.8-7.7); BASOPHIL % 0.5 % (0.0-2.0); EOSINOPHIL # 0.1 TH/MM3 (0-0.4); EOSINOPHIL % 3.2 % (0.0-4.0); HEMATOCRIT 37.4 % (39.0-51.0); HEMO FLAGS DIFF FINAL; LYMPH % 36.3 % (9.0-44.0); LYMPHOCYTE # 1.6 TH/MM3 (1.0-4.8); MEAN CELL VOLUME 93.4 FL (80.0-100.0); MEAN CORPUSCULAR HEMOGLOBIN 30.1 PG (27.0-34.0); MEAN CORPUSCULAR HGB CONC 32.2 % (32.0-36.0); MONO % 16.1 % (0.0-8.0); NEUT % 43.9 % (16.0-70.0); PLATELET COUNT 171 TH/MM3 (150-450); RED CELL DISTRIBUTION WIDTH 14.5 % (11.6-17.2); WHITE BLOOD COUNT 4.4 TH/MM3 (4.0-11.0)
[2016-05-16 12:36] LABS: INTERNATIONAL NORMALIZED RATIO 1.3 RATIO; PROTHROMBIN TIME - PATIENT 14.2 SEC (9.8-11.6)
[2016-05-16 12:37] LABS: BICARBONATE 30.4 MEQ/L (21.0-32.0); POTASSIUM 3.7 MEQ/L (3.5-5.1)
[2016-05-16 14:00] VITALS: BP 116/89; PULSE 86; RESP 16; O2SAT 99
[2016-05-16] MEDS ORDERED: LACTULOSE SYRUP 20 GM/30 ML CUP PO ONE (15:30)
--- NOTE | 2016-05-16 15:53 | PD ---
Physical Exam Date Seen by Provider: May 16, 2016 Time Seen by Provider: 15:50 Narrative 56-year-old male that presents to the ED for evaluation of chest pain. Patient was properly evaluated by previous provide a pill pressure for to her note. Patient initially came here for chest pain and swelling on the abdomen. Patient apparently has a history of cirrhosis as well as bad CHF. Data Data Last Documented VS Vital Signs Date Time Temp Pulse Resp B/P Pulse Ox O2 Delivery O2 Flow Rate FiO2 05/16/16 12:20 76 16 98 Room Air 05/16/16 10:34 97.3 122/86 Orders Electrocardiogram (05/16/16 11:00) Complete Blood Count With Diff (05/16/16 11:00) Basic Metabolic Panel (Bmp) (05/16/16 11:00) Ckmb (Isoenzyme) Profile (05/16/16 11:00) Troponin I (05/16/16 11:00) Chest, Single Ap (05/16/16 11:00) Coag Profile (05/16/16 11:26) Magnesium (Mg) (05/16/16 11:26) Ammonia (05/16/16 11:32) B-Type Natriuretic Peptide (05/16/16 14:33) Lactulose Liq (Lactulose Liq) (05/16/16 15:30) Us Abdomen Gallbladder (05/16/16 15:46) Admit Order (Ed Use Only) (05/16/16 15:46) Hepatic Functional Panel (05/16/16 15:49) Labs Laboratory Tests Test 05/16/16 11:40 White Blood Count 4.4 TH/MM3 Red Blood Count 4.00 MIL/MM3 Hemoglobin 12.0 GM/DL Hematocrit 37.4 % Mean Corpuscular Volume 93.4 FL Mean Corpuscular Hemoglobin 30.1 PG Mean Corpuscular Hemoglobin 32.2 % Concent Red Cell Distribution Width 14.5 % Platelet Count 171 TH/MM3 Mean Platelet Volume 9.1 FL Neutrophils (%) (Auto) 43.9 % Lymphocytes (%) (Auto) 36.3 % Monocytes (%) (Auto) 16.1 % Eosinophils (%) (Auto) 3.2 % Basophils (%) (Auto) 0.5 % Neutrophils # (Auto) 1.9 TH/MM3 Lymphocytes # (Auto) 1.6 TH/MM3 Monocytes # (Auto) 0.7 TH/MM3 Eosinophils # (Auto) 0.1 TH/MM3 Basophils # (Auto) 0.0 TH/MM3 CBC Comment DIFF FINAL Differential Comment Prothrombin Time 14.2 SEC Prothromb Time International 1.3 RATIO Ratio Activated Partial 30.0 SEC Thromboplast Time Sodium Level 143 MEQ/L Potassium Level 3.7 MEQ/L Chloride Level 105 MEQ/L Carbon Dioxide Level 30.4 MEQ/L Anion Gap 8 MEQ/L Blood Urea Nitrogen 7 MG/DL Creatinine 0.89 MG/DL Estimat Glomerular Filtration 107 ML/MIN Rate Random Glucose 64 MG/DL Calcium Level 8.7 MG/DL Magnesium Level 1.6 MG/DL Ammonia 44 MCMOL/L Total Creatine Kinase 97 U/L Troponin I 0.04 NG/ML [facility] Medical Record Reviewed: Yes Supervised Visit with JOSSELINE: No Interpretation(s) CBC & BMP Diagram 05/16/16 11:40 Ammonia 44 Last Impressions Chest X-Ray 05/16/16 1100 Signed Impressions: Service Date/Time: May 11:27 - CONCLUSION: Normal examination except for questionable enlargement of the cardiac silhouette. Sonu Baca MD EKG shows sinus rhythm with no sign of acute acute ischemia or arrhythmia. Read by me and attending. Troponin and CK-MB negative. Differential Diagnosis Chest pain versus CHF exacerbation versus cystitis versus hepatic encephalopathy versus ascites Narrative Course 56-year-old male that presents to the ED for evaluation of chest pain. Patient was properly examined by me and my attending Dr. Ventura. Patient was initially seen by Magdalena Verduzco at the triage area and had initial workup done. Initial troponin and EKG were within normal limits. The patient did not had any stress test done on his last admission. On my physical exam patient does appear to have more of a hepatic encephalopathy as he does appear to be somewhat confused and more lethargic. Patient does have a history of cirrhosis and has been out of his lactulose for about 2 weeks. Patient complains of chest pain but he grabs at his abdomen whenever he has the pain. Patient does appear to have gained weight from prior visit. At this time I believe the patient is likely fluid overload. Patient was discussed with my attending Dr. Ventura who examined the patient and recommends admission for hepatic encephalopathy. Case discussed with Dr. Horvath who agrees to admission. HemaPrompt Test Point of Care Fecal Specimen Occult Blood: Negative Diagnosis Primary Impression: Hepatic encephalopathy Additional Impressions: Systolic congestive heart failure with reduced left ventricular function, NYHA class 3 Chest pain at rest Admitting Information Admitting Physician Requests: Admit Matthew Dawson May 16, 2016 15:53
[2016-05-16 16:00] VITALS: BP 127/101; PULSE 78; RESP 16; O2SAT 98
[2016-05-16 16:33] VITALS: BP 132/104; PULSE 81; RESP 20
--- NOTE | 2016-05-16 17:31 | PD ---
Data Data Last Documented VS Vital Signs Date Time Temp Pulse Resp B/P Pulse Ox O2 Delivery O2 Flow Rate FiO2 05/16/16 12:20 76 16 98 Room Air 05/16/16 10:34 97.3 122/86 Orders Electrocardiogram (05/16/16 11:00) Complete Blood Count With Diff (05/16/16 11:00) Basic Metabolic Panel (Bmp) (05/16/16 11:00) Ckmb (Isoenzyme) Profile (05/16/16 11:00) Troponin I (05/16/16 11:00) Chest, Single Ap (05/16/16 11:00) Coag Profile (05/16/16 11:26) Magnesium (Mg) (05/16/16 11:26) Ammonia (05/16/16 11:32) B-Type Natriuretic Peptide (05/16/16 14:33) Lactulose Liq (Lactulose Liq) (05/16/16 15:30) Us Abdomen Gallbladder (05/16/16 15:46) Admit Order (Ed Use Only) (05/16/16 15:46) Hepatic Functional Panel (05/16/16 15:49) Admit To Inpatient (05/16/16 ) Inpatient Certification (05/16/16 ) Diet Heart Healthy (05/16/16 Dinner) Activity Bed Rest (05/16/16 15:45) Vital Signs (Adult) TWILA.Q4H (05/16/16 15:45) Labs Laboratory Tests Test 05/16/16 11:40 White Blood Count 4.4 TH/MM3 Red Blood Count 4.00 MIL/MM3 Hemoglobin 12.0 GM/DL Hematocrit 37.4 % Mean Corpuscular Volume 93.4 FL Mean Corpuscular Hemoglobin 30.1 PG Mean Corpuscular Hemoglobin 32.2 % Concent Red Cell Distribution Width 14.5 % Platelet Count 171 TH/MM3 Mean Platelet Volume 9.1 FL Neutrophils (%) (Auto) 43.9 % Lymphocytes (%) (Auto) 36.3 % Monocytes (%) (Auto) 16.1 % Eosinophils (%) (Auto) 3.2 % Basophils (%) (Auto) 0.5 % Neutrophils # (Auto) 1.9 TH/MM3 Lymphocytes # (Auto) 1.6 TH/MM3 Monocytes # (Auto) 0.7 TH/MM3 Eosinophils # (Auto) 0.1 TH/MM3 Basophils # (Auto) 0.0 TH/MM3 CBC Comment DIFF FINAL Differential Comment Prothrombin Time 14.2 SEC Prothromb Time International 1.3 RATIO Ratio Activated Partial 30.0 SEC Thromboplast Time Sodium Level 143 MEQ/L Potassium Level 3.7 MEQ/L Chloride Level 105 MEQ/L Carbon Dioxide Level 30.4 MEQ/L Anion Gap 8 MEQ/L Blood Urea Nitrogen 7 MG/DL Creatinine 0.89 MG/DL Estimat Glomerular Filtration 107 ML/MIN Rate Random Glucose 64 MG/DL Calcium Level 8.7 MG/DL Magnesium Level 1.6 MG/DL Ammonia 44 MCMOL/L Total Creatine Kinase 97 U/L Troponin I 0.04 NG/ML MDM Supervised Visit with JOSSELINE: Yes Narrative Course The history, exam, and medical decision-making in the associated midlevel provider note were completed with my assistance. I reviewed and agree with the findings presented. I attest that I had a [id number] encounter with the patient on the same day, and personally performed and documented my assessment and findings in the medical record. *My assessment and Findings: This is a patient who has a history congestive heart failure and cirrhosis who presents to the emergent ring left-sided chest pain. He was just hospitalized for chest pain and he had an echo but no nuclear stress test performed. He is quite confused on exam. His family member with him says that he typically gets "gas problems "leading to confusion and after they administer medicine for several days he gets better. I think she means lactulose. The patient appears to have hepatic encephalopathy. Patient will be admitted. Diagnosis Primary Impression: Hepatic encephalopathy Additional Impressions: Systolic congestive heart failure with reduced left ventricular function, NYHA class 3 Chest pain at rest Elise Ventura MD May 16, 2016 17:31
--- NOTE | 2016-05-16 17:43 | RADRPT ---
EXAM DATE/TIME: 05/16/2016 17:11 [facility] COMPARISON: No previous studies available for comparison. INDICATIONS : Nausea/vomiting. MEDICAL HISTORY : Hypercholesterolemia. Congestive heart failure. Cirrhosis. HTN. GERD. SURGICAL HISTORY : None. ENCOUNTER: Initial ACUITY: 1 day PAIN SCORE: 8/10 LOCATION: Right upper quadrant MEASUREMENTS: LIVER: 18.7 cm length COMMON DUCT: 4 mm RIGHT KIDNEY: 11.1 x 5.8 x 4.8 cm FINDINGS: LIVER: Normal echotexture without focal lesion or ductal dilatation. Significant free fluid around liver. COMMON DUCT: No intraluminal mass or stone visualized. GALLBLADDER: Marked gallbladder wall thickening without obvious stone. PANCREAS: The visualized portions are within normal limits. RIGHT KIDNEY: No evidence of hydronephrosis, stone, or mass. CONCLUSION: Significant fluid around the liver likely causing some gallbladder wall thickening an d pericholecystic fluid. The portal vein is patent. Sonu Baca MD on May 16, 2016 at 17:40 Board Certified Radiologist. This report was verified electronically.
[2016-05-16 17:53] LABS: INDIRECT BILIRUBIN 0.4 MG/DL (0.0-0.8); TOTAL BILIRUBIN ADULT 1.2 MG/DL (0.2-1.0)
[2016-05-16] MEDS ORDERED: cloNIDine HCL 0.1 MG TAB PO PRN (18:45)
[2016-05-16] MEDS ORDERED: FUROSEMIDE 40 MG/4 ML VIAL IV PUSH SCH (18:45)
[2016-05-16 19:00] VITALS: BP 154/99; PULSE 89; RESP 16; O2SAT 100
--- NOTE | 2016-05-16 19:02 | HHI.HP ---
[facility] Primary Care Physician No Primary Care Physician Admission Diagnosis hepatic encephalopathy, CHF exacerbation, chest pain Diagnoses: Chief Complaint: Chest pain Travel History International Travel<30 Days: No Contact w/Intl Traveler <30 Da: No Traveled to Known Affected Are: No History of Present Illness Patient is a 56-year-old male who was brought in here by sister - complains of chest "hurting". this was associated with some neck pain and bilateral shoulder pain. Denies any nausea vomiting. In addition to this sister claims that patient was acting confused and not right Patient states easy fatigability , patient gets early satiety. Has been having bouts of hiccups lately with acid reflux sensation. Associated with coughing after eating . Patient states he is compliant with medications Persistence of above symptoms prompted sister brought him here and evaluated for further evaluation Patient denies any fever or chills diarrhea urinary urinary symptoms. Review of Systems Constitutional: DENIES: Diaphoretic episodes, Fatigue, Fever, Weight gain, Weight loss, Chills, Dizziness, Change in appetite, Night Sweats Endocrine: DENIES: Heat/cold intolerance, Polydipsia, Polyuria, Polyphagia Ears, nose, mouth, throat: DENIES: Tinnitus, Hearing loss, Vertigo, Nasal discharge, Oral lesions, Throat pain, Hoarseness, Ear Pain, Running Nose, Epistaxis, Sinus Pain, Toothache, Odynophagia Respiratory: COMPLAINS OF: Shortness of breath Cardiovascular: COMPLAINS OF: Chest pain, Dyspnea on Exertion Gastrointestinal: COMPLAINS OF: Abdominal pain Genitourinary: DENIES: Sexual dysfunction, Urinary frequency, Urinary incontinence, Urgency, Hematuria, Dysuria, Nocturia, Penile Discharge, Testicular Pain, Testicular Swelling Musculoskeletal: DENIES: Joint pain, Muscle aches, Stiffness, Joint Swelling, Back pain, Neck pain Integumentary: DENIES: Abnormal pigmentation, Nail changes, Pruritus, Rash Hematologic/lymphatic: DENIES: Bruising, Lymphadenopathy Immunologic/allergic: DENIES: Eczema, Urticaria Neurologic: DENIES: Abnormal gait, Headache, Localized weakness, Paresthesias, Seizures, Speech Problems, Tremor, Poor Balance Psychiatric: DENIES: Anxiety, Confusion, Mood changes, Depression, Hallucinations, Agitation, Suicidal Ideation, Homicidal Ideation, Delusions Past Family Social History Past Medical History History of dilated dated cardiomyopathy dilated EF of 20% History of alcohol abuse Past Surgical History No major surgeries Reported Medications Lisinopril 10 mg daily Imdur 30 mg daily Toprol-XL 50 mg daily Aspirin 81 mg daily 8 atorvastatin 40 mg daily Folic acid 1 mg daily Furosemide 40 mg daily Lactulose 15 cc 3 times a day Spironolactone 25 mg daily Thiamine 100 mg daily Allergies: Coded Allergies: Flu Vaccine (Verified Allergy, Unknown, 05/16/16) Family History Noncontributory Social History History of smoking quit years ago History of alcohol use quit 2 years ago Physical Exam Vital Signs Vital Signs Date Time Temp Pulse Resp B/P Pulse Ox O2 Delivery O2 Flow Rate FiO2 05/16/16 16:33 81 20 132/104 Room Air 05/16/16 16:00 78 16 127/101 98 Room Air 05/16/16 14:00 86 16 116/89 99 Room Air 05/16/16 12:20 76 16 98 Room Air 05/16/16 10:34 97.3 76 20 122/86 96 Room Air Physical Exam GENERAL: This is a well-nourished, well-developed patient, in no apparent distress. Baseline 3 pillow orthopnea SKIN: No rashes, ecchymoses or lesions. Cool and dry. HEAD: Atraumatic. Normocephalic. No temporal or scalp tenderness. EYES: Pupils equal round and reactive. Extraocular motions intact. No scleral icterus. No injection or drainage. ENT: Nose without bleeding, purulent drainage or septal hematoma. Throat without erythema, tonsillar hypertrophy or exudate. Uvula midline. Airway patent. NECK: Trachea midline. Positive JVD. Supple, nontender, no meningeal signs. CARDIOVASCULAR: Regular rate and rhythm without murmurs, gallops, or rubs. RESPIRATORY: Decreased. Breath sounds equal bilaterally. No wheezes, rales, or rhonchi. GASTROINTESTINAL: Abdomen soft, distended upper abdomen, very tympanitic no guarding, no scrotal swelling MUSCULOSKELETAL: Extremities without clubbing, cyanosis, or edema. No joint tenderness, effusion, or edema noted. No calf tenderness. Negative Homans sign bilaterally. NEUROLOGICAL: Awake and alert. Cranial nerves II through XII intact. Motor and sensory grossly within normal limits. Five out of 5 muscle strength in all muscle groups. Normal speech. Laboratory Laboratory Tests Test 05/16/16 11:40 White Blood Count 4.4 Red Blood Count 4.00 Hemoglobin 12.0 Hematocrit 37.4 Mean Corpuscular Volume 93.4 Mean Corpuscular Hemoglobin 30.1 Mean Corpuscular Hemoglobin 32.2 Concent Red Cell Distribution Width 14.5 Platelet Count 171 Mean Platelet Volume 9.1 Neutrophils (%) (Auto) 43.9 Lymphocytes (%) (Auto) 36.3 Monocytes (%) (Auto) 16.1 Eosinophils (%) (Auto) 3.2 Basophils (%) (Auto) 0.5 Neutrophils # (Auto) 1.9 Lymphocytes # (Auto) 1.6 Monocytes # (Auto) 0.7 Eosinophils # (Auto) 0.1 Basophils # (Auto) 0.0 CBC Comment DIFF FINAL Differential Comment Prothrombin Time 14.2 Prothromb Time International 1.3 Ratio Activated Partial 30.0 Thromboplast Time Sodium Level 143 Potassium Level 3.7 Chloride Level 105 Carbon Dioxide Level 30.4 Anion Gap 8 Blood Urea Nitrogen 7 Creatinine 0.89 Estimat Glomerular Filtration 107 Rate Random Glucose 64 Calcium Level 8.7 Magnesium Level 1.6 Total Bilirubin 1.2 Direct Bilirubin 0.8 Indirect Bilirubin 0.4 Aspartate Amino Transf 17 (AST/SGOT) Alanine Aminotransferase 12 (ALT/SGPT) Alkaline Phosphatase 141 Ammonia 44 Total Creatine Kinase 97 Troponin I 0.04 B-Type Natriuretic Peptide 1888 Total Protein 7.2 Albumin 3.2 Result Diagram: 05/16/16 1140 05/16/16 1140 Imaging Last Impressions Gall Bladder Ultrasound 05/16/16 1546 Signed Impressions: Service Date/Time: May 17:11 - CONCLUSION: Significant fluid around the liver likely causing some gallbladder wall thickening and pericholecystic fluid. The portal vein is patent. Sonu Baca MD Chest X-Ray 05/16/16 1100 Signed Impressions: Service Date/Time: May 11:27 - CONCLUSION: Normal examination except for questionable enlargement of the cardiac silhouette. Sonu Baca MD Assessment and Plan Assessment and Plan 56-year-old male Hepatic encephalopathy Increase lactulose to 15 cc 4 times a day monitor mental status consider imaging study in am if no improvement in am GERD Abdomen slightly distended Get a CT of the abdomen- check for ascites Start patient on PPI 40 mg every 12 consider GI consult A typical chest pain - possible GI etiology Chronic congestive heart failure currently not in any form of acute failure Dilated cardiomyopathy- Hypertension Check troponins. 12-lead EKG no acute changes compared with previous EKGs Will continue on nitrates but changed to Nitrol paste Continue on lisinopril. Continue on furosemide 40 mg daily, aldactone continue on beta adelia Toprol-XL 50 mg daily. Aspirin 81 mg. Atorvastatin 40 mg daily Clonidine when necessary with parameters Elise Lopez MD May 16, 2016 19:02
--- NOTE | 2016-05-16 19:32 | RADRPT ---
EXAM DATE/TIME: 05/16/2016 18:48 [facility] COMPARISON: No previous studies available for comparison. INDICATIONS : Abdomen distention, evaluate for ascites. ORAL CONTRAST: No oral contrast ingested. RADIATION DOSE: 9.96 CTDIvol (mGy) MEDICAL HISTORY : Cirrhosis. Cardiovascular disease Hypertension. SURGICAL HISTORY : None. ENCOUNTER: Initial ACUITY: 1 day PAIN SCALE: 0/10 LOCATION: Abdomen TECHNIQUE: Volumetric scanning of the abdomen and pelvis was performed. Using automated exposure control and adjustment of the mA and/or kV according to patient size, radiation dose was kept as low as reasonably achievable to obtain optimal diagnostic quality images. FINDINGS: CT Abdomen: The liver, spleen, pancreas, kidneys, adrenals are unremarkable. There is no evidence for any appreciable pathological adenopathy, or bowel obstruction. Slight bibasilar atelectasis and/or infiltrate is seen. There is slight ascites throughout the abdomen and pelvis with partial extension into the left inguinal canal and scrotum. CT pelvis: There is no evidence for mass, abscess formation, or any significant adenopathy within the pelvis. CONCLUSION: Slight bibasilar atelectasis and/or infiltrate is seen, and slight ascites. Cami Chen MD on May 16, 2016 at 19:27 Board Certified Radiologist. This report was verified electronically.
[2016-05-16] MEDS ORDERED: POTASSIUM CHLORIDE 20 MEQ CONTROLLED RELEASE TAB PO ONE (21:00)
[2016-05-16] MEDS: ATORVASTATIN 40 MG TAB PO SCH (22:23)
[2016-05-16] MEDS: NITROGLYCERIN 2% OINT 1 GM PACKET TOPICAL SCH (22:23)
[2016-05-16] MEDS: LACTULOSE SYRUP 20 GM/30 ML CUP PO SCH (22:23)
[2016-05-16] MEDS: PANTOPRAZOLE SODIUM 40 MG VIAL IV PUSH SCH (22:23)
[2016-05-16] MEDS: FUROSEMIDE 40 MG/4 ML VIAL IV PUSH SCH (22:23)
[2016-05-17] VITALS (8 sets, daily range): BP systolic 107–138; BP diastolic 72–104; PULSE 72–89; RESP 16–20; TEMP 97.8–98.8; O2SAT 96–97
[2016-05-17 03:29] LABS: AMPHETAMINE, URINE NEG (NEG); BARBITURATES, URINE NEG (NEG); COCAINE, URINE NEG (NEG)
[2016-05-17] MEDS: LACTULOSE SYRUP 20 GM/30 ML CUP PO SCH ×4 (03:33→21:15)
[2016-05-17] MEDS: NITROGLYCERIN 2% OINT 1 GM PACKET TOPICAL SCH (06:00)
[2016-05-17] MEDS ORDERED: ISOSORBIDE MONONITRATE 30 MG TAB PO SCH (07:00)
--- NOTE | 2016-05-17 08:50 | HHI.PR ---
Subjective Remarks patient much much better- awake and alert oriented x 3 complains of mild headache Objective Vitals Vital Signs Date Time Temp Pulse Resp B/P Pulse Ox O2 Delivery O2 Flow Rate FiO2 05/17/16 04:00 78 16 114/81 96 Room Air 05/17/16 00:00 87 16 138/94 97 Room Air 05/16/16 19:00 89 16 154/99 100 Room Air 05/16/16 16:33 81 20 132/104 Room Air 05/16/16 16:00 78 16 127/101 98 Room Air 05/16/16 14:00 86 16 116/89 99 Room Air 05/16/16 12:20 76 16 98 Room Air 05/16/16 10:34 97.3 76 20 122/86 96 Room Air Result Diagram: 05/16/16 1140 05/16/16 1140 Imaging Last Impressions Gall Bladder Ultrasound 05/16/16 1546 Signed Impressions: Service Date/Time: May 17:11 - CONCLUSION: Significant fluid around the liver likely causing some gallbladder wall thickening and pericholecystic fluid. The portal vein is patent. Sonu aBca MD Chest X-Ray 05/16/16 1100 Signed Impressions: Service Date/Time: May 11:27 - CONCLUSION: Normal examination except for questionable enlargement of the cardiac silhouette. Sonu Bcaa MD Abdomen/Pelvis CT 05/16/16 0000 Signed Impressions: Service Date/Time: May 18:48 - CONCLUSION: Slight bibasilar atelectasis and/or infiltrate is seen, and slight ascites. Cami Chen MD Objective Remarks awake and alert, oriented x 3, speech clear lungs no rales or wheezes regular rhythm abdomen soft, nontender, no scrotal swelling no leg swelling,no edema neuro exam- non focal A/P Assessment and Plan 56-year-old male Hepatic encephalopathy- MS improved Increase lactulose to 15 cc 4 times a day monitor mental status GERD- CT minimal ascites PPI 40 mg every 12 consider GI consult A typical chest pain troponins negative Chronic congestive heart failure currently not in any form of acute failure Dilated cardiomyopathy- Hypertension negative troponins. 12-lead EKG no acute changes compared with previous EKGs Will continue on nitrates Continue on lisinopril. Continue on furosemide 40 mg daily, aldactone continue on beta adelia Toprol-XL 50 mg daily. Aspirin 81 mg. Atorvastatin 40 mg daily Clonidine when necessary with parameters Headache- now states chronic usually every am get a head CT PT eval and treat Elise Horvath MD May 17, 2016 08:50
--- NOTE | 2016-05-17 09:21 | RADRPT ---
EXAM DATE/TIME: 05/17/2016 09:05 [facility] COMPARISON: No previous studies available for comparison. INDICATIONS : Increasing confusion. RADIATION DOSE: 46.85 CTDIvol (mGy) MEDICAL HISTORY : Hypertension. Congestive heart failure. SURGICAL HISTORY : None. ENCOUNTER: Initial ACUITY: 1 day PAIN SCALE: 0/10 LOCATION: cranial TECHNIQUE: Multiple contiguous axial images were obtained of the head. Using automated exposure control and adj ustment of the mA and/or kV according to patient size, radiation dose was kept as low as reasonably a chievable to obtain optimal diagnostic quality images. FINDINGS: CEREBRUM: The ventricles are normal for age. No evidence of midline shift, mass lesion, hemorrhage or acute in farction. No extra-axial fluid collections are seen. POSTERIOR FOSSA: The cerebellum and brainstem are intact. The 4th ventricle is midline. The cerebellopontine angle i s unremarkable. EXTRACRANIAL: The visualized portion of the orbits is intact. SKULL: The calvaria is intact. No evidence of skull fracture. CONCLUSION: No acute intracranial disease. Mika Elias MD on May 17, 2016 at 9:11 Board Certified Radiologist. This report was verified electronically.
[2016-05-17] MEDS: FUROSEMIDE 40 MG/4 ML VIAL IV PUSH SCH (09:23)
[2016-05-17] MEDS: ISOSORBIDE MONONITRATE 30 MG TAB PO SCH (09:23)
[2016-05-17] MEDS: FOLIC ACID 1 MG TAB PO SCH (09:24)
[2016-05-17] MEDS: ASPIRIN EC 81 MG TABEC PO SCH (09:24)
[2016-05-17] MEDS: METOPROLOL SUCCINATE 50 MG EXTENDED RELEASE TAB PO SCH (09:24)
[2016-05-17] MEDS: THIAMINE HCL 100 MG TAB PO SCH (09:24)
[2016-05-17] MEDS: SPIRONOLACTONE 25 MG TAB PO SCH (09:24)
[2016-05-17] MEDS: LISINOPRIL 10 MG TAB PO SCH (09:25)
[2016-05-17 12:57] LABS: BICARBONATE 32.6 MEQ/L (21.0-32.0); POTASSIUM 3.7 MEQ/L (3.5-5.1)
[2016-05-17] MEDS: ATORVASTATIN 40 MG TAB PO SCH (21:15)
[2016-05-17] MEDS: PANTOPRAZOLE SODIUM 40 MG VIAL IV PUSH SCH (21:15)
--- NOTE | 2016-05-17 23:40 | EKG ---
Date Performed: 05/16/2016 Time Performed: 11:51:22 PTAGE: 56 years EKG: Sinus rhythm WITH FIRST DEGREE AV BLOCK POSSIBLE LEFT ATRIAL ENLARGEMENT BORDERLINE LEFT AXIS DEVIATION MODERATE T-WAVE ABNORMALITY, CONSIDER LATERAL ISCHEMIA ABNORMAL ECG PREVIOUS TRACING : 04/22/2016 04.05 DOCTOR: Sirena Watt Interpretating Date/Time 05/17/2016 23:38:45
[2016-05-18] VITALS (15 sets, daily range): BP systolic 106–112; BP diastolic 59–81; PULSE 76–91; RESP 16–18; TEMP 97.8; O2SAT 96–100
[2016-05-18] MEDS: LACTULOSE SYRUP 20 GM/30 ML CUP PO SCH ×2 (03:29→08:58)
[2016-05-18] MEDS: LISINOPRIL 10 MG TAB PO SCH (08:59)
[2016-05-18] MEDS: METOPROLOL SUCCINATE 50 MG EXTENDED RELEASE TAB PO SCH (09:00)
[2016-05-18] MEDS: ISOSORBIDE MONONITRATE 30 MG TAB PO SCH (09:00)
[2016-05-18] MEDS: FUROSEMIDE 40 MG/4 ML VIAL IV PUSH SCH (09:00)
[2016-05-18] MEDS: THIAMINE HCL 100 MG TAB PO SCH (09:00)
[2016-05-18] MEDS: FOLIC ACID 1 MG TAB PO SCH (09:00)
[2016-05-18] MEDS: ASPIRIN EC 81 MG TABEC PO SCH (09:00)
[2016-05-18] MEDS: SPIRONOLACTONE 25 MG TAB PO SCH (09:00)
--- NOTE | 2016-05-18 09:07 | HHI.PR ---
Subjective Remarks awake and alert no complains, no abdominal pain po 100% no nausea or vomiting no chest pains or shortness of breath Objective Vitals Vital Signs Date Time Temp Pulse Resp B/P Pulse Ox O2 Delivery O2 Flow Rate FiO2 05/18/16 08:50 97.8 83 18 112/81 100 05/18/16 07:07 86 05/18/16 06:00 84 05/18/16 05:00 78 05/18/16 04:00 76 05/18/16 03:30 78 16 106/59 96 05/18/16 03:00 80 05/18/16 02:00 80 05/18/16 01:00 82 05/18/16 00:00 82 05/17/16 23:00 72 05/17/16 23:00 85 16 107/72 97 05/17/16 22:00 74 05/17/16 21:00 74 05/17/16 19:00 97.8 76 16 115/77 97 05/17/16 19:00 89 05/17/16 15:00 98.8 87 20 138/104 96 I/O 05/17/16 05/17/16 05/17/16 05/18/16 05/18/16 05/18/16 07:00 15:00 23:00 07:00 15:00 23:00 Intake Total 620 ml 400 ml Output Total 525 ml Balance 620 ml -125 ml Intake Oral 620 ml 400 ml Output Urine Total 525 ml Stool Total 0 ml # Voids 2 Result Diagram: 05/16/16 1140 05/17/16 1233 Imaging Last Impressions Head CT 05/17/16 0000 Signed Impressions: Service Date/Time: Tuesday, May 17, 2016 09:05 - CONCLUSION: No acute intracranial disease. Mika Elias MD Gall Bladder Ultrasound 05/16/16 1546 Signed Impressions: Service Date/Time: May 17:11 - CONCLUSION: Significant fluid around the liver likely causing some gallbladder wall thickening and pericholecystic fluid. The portal vein is patent. Sonu Baca MD Chest X-Ray 05/16/16 1100 Signed Impressions: Service Date/Time: May 11:27 - CONCLUSION: Normal examination except for questionable enlargement of the cardiac silhouette. Sonu Baca MD Abdomen/Pelvis CT 05/16/16 0000 Signed Impressions: Service Date/Time: May 18:48 - CONCLUSION: Slight bibasilar atelectasis and/or infiltrate is seen, and slight ascites. Cami Chen MD Objective Remarks awake and alert, oriented x 3, speech clear lungs no rales or wheezes regular rhythm abdomen soft, nontender, no scrotal swelling no leg swelling,no edema neuro exam- non focal A/P Assessment and Plan 56-year-old male Hepatic encephalopathy- MS improved continue Lactulose GERD- CT minimal ascites PPI 40 mg every 12 A typical chest pain troponins negative Chronic congestive heart failure currently not in any form of acute failure Dilated cardiomyopathy- Hypertension negative troponins. 12-lead EKG no acute changes compared with previous EKGs Will continue on nitrates Continue on lisinopril. Continue on furosemide 40 mg daily, aldactone continue on beta adelia Toprol-XL 50 mg daily. Aspirin 81 mg. Atorvastatin 40 mg daily Clonidine when necessary with parameters Headache- now states chronic usually every am Head CT negative DC home today OP ff up with PCP- to set up and ff up with Cardiology d/w her also advance directives continue home meds Latulose increase to q 6 Activity- as toelrated. no strenuous activity diet heart healthy Elise Horvath MD May 18, 2016 09:07
[2016-05-18] MEDS ORDERED: LACT10SO PO (09:17)
[2016-05-18] MEDS ORDERED: PROT40TA PO ×2 (09:18→09:24)
[2016-05-19] MEDS ORDERED: FUROSEMIDE 40 MG TAB PO SCH (09:00)
[2016-05-27] MEDS ORDERED: LACT10SO PO (11:46)
[2016-05-27] MEDS ORDERED: PROT40TA PO (11:46)
[2016-05-27] MEDS ORDERED: ISOS30TA3 PO (12:00)
[2016-05-27] MEDS ORDERED: METO25TA6 PO (12:00)
[2016-05-27] MEDS ORDERED: VENTAER INH (12:03)
[2016-06-27] MEDS ORDERED: METH125I2 IM (10:18)
[2016-06-27] MEDS ORDERED: ADVA500A INH (10:19)
[2016-06-27] MEDS ORDERED: LISI-519 PO (10:30)
[2016-06-27] MEDS ORDERED: METO50TA PO (10:32)
== END 2016-05-18 12:54 | disposition home or self-care (01) | DRG 442 ==
LOC: NEPE 10:31 → NEDA 15:49 → NEDH 19:58 → HCIS 05-17 09:41
PROVIDERS: ADMIT Internal Medicine; ATTEND Internal Medicine
DX: K72.90 Hepatic failure, unspecified without coma (principal); I50.20 Unspecified systolic (congestive) heart failure; I42.0 Dilated cardiomyopathy; R18.8 Other ascites; I10 Essential (primary) hypertension; K21.9 Gastro-esophageal reflux disease without esophagitis; K74.60 Unspecified cirrhosis of liver; E78.00 Pure hypercholesterolemia, unspecified; R51 Headache; Z88.7 Allergy status to serum and vaccine; Z87.891 Personal history of nicotine dependence
CPT/HCPCS: 70450; 71010; 74176; 76705; 80048; 80076; 80307; 82140; 82550; 83735; 83880; 84484; 85025; 85610; 85730; 93005; C9113; J1940

== ENCOUNTER → 2016-05-27 | Outpatient (CLI) | payer MEDICAID, OTHER ==
[~2016-05-27] MED LIST changes: +ADVA500A INH; +LACT10SO PO; -LACT10SO27 PO; +METH125I2 IM; +METO50TA PO; +PROT40TA PO; +VENTAER INH
== END ==
LOC: CLAB 12:24
PROVIDERS: ATTEND Family Medicine
DX: K72.90 Hepatic failure, unspecified without coma (principal); E78.5 Hyperlipidemia, unspecified
CPT/HCPCS: 36415; 82140; 84443

== ENCOUNTER 2016-07-19 14:40 | Observation (INO) | payer MEDICAID ==
[2016-07-19] VITALS (7 sets, daily range): BP systolic 105–176; BP diastolic 71–113; PULSE 77–82; RESP 14–22; TEMP 98.2–98.6; O2SAT 95–98
[~2016-07-19] VITALS: Ht 182.9 cm; Wt 92.0 kg
[~2016-07-19 14:40] MED LIST changes: -METH125I2 IM; -METO25TA6 PO
--- NOTE | 2016-07-19 15:17 | PD ---
HPI Chief Complaint: Chest Pain Time Seen by Provider: 15:17 Travel History International Travel<30 days: No Contact w/Intl Traveler<30days: No Traveled to known affect area: No History of Present Illness HPI 56-year-old male presents to the emergency department for evaluation of left chest pain that had started at 1 AM has been intermittent. He points to specific area of the chest where his pain is. He states he has had this pain for several months, but we will go away and did not go away today. He reports that his integration solution architect is Dr. Doss. He states that he had a stress test done in March at [facility] which was normal. However, he does not have records with him and states his integration solution architect does not have these records either. The patient denies any radiation of the pain. He states he took 2 baby aspirin today. He denies any recent surgery or travel. No leg edema. No hemoptysis. He reports history of hypertension, hyperlipidemia, liver cirrhosis , COPD, CHF. He states he was a previous alcohol drinker and previous tobacco smoker. He denies any history of DVT/PE. PFSH Past Medical History Asthma: No Blood Disorders: No Heart Rhythm Problems: No Cancer: No Cardiovascular Problems: Yes (HTN ) High Cholesterol: Yes Chemotherapy: No Chest Pain: No Congestive Heart Failure: Yes (hx of) Cirrhosis: Yes COPD: No Diabetes: No Diminished Hearing: No GERD: Yes Genitourinary: No Hypertension: Yes Immune Disorder: No Musculoskeletal: No Neurologic: No Psychiatric: No Reproductive: No Respiratory: No Radiation Therapy: No Sleep Apnea: No Thyroid Disease: No Past Surgical History Other Surgery: No Social History Alcohol Use: No Tobacco Use: No Substance Use: No Allergies-Medications (Allergen,Severity, Reaction): Coded Allergies: Flu Vaccine (Verified Allergy, Unknown, 07/19/16) Reported Meds & Prescriptions Reported Meds & Active Scripts Active Metoprolol Tartrate 50 Mg Tab 50 Mg PO BID Lisinopril 5 Mg Tab 10 Mg PO DAILY Advair Diskus Inh (Fluticasone-Salmeterol Inh) 500-50 Mcg/Blist Aer 1 Puff INH BID Rinse mouth after use. Ventolin Hfa 18 GM Inh (Albuterol Sulfate) 90 Mcg/Act Aer 2 Puff INH Q4-6H PRN Isosorbide Mononitrate ER (Isosorbide Mononitrate) 30 Mg Balbina 30 Mg PO DAILY@07 Protonix (Pantoprazole Sodium) 40 Mg Tab 40 Mg PO DAILY Lactulose Liq (Lactulose) 10 Gm/15 Ml Soln 30 Ml PO Q6H 30 Days Reported Furosemide 40 Mg Tab 40 Mg PO DAILY Atorvastatin (Atorvastatin Calcium) 40 Mg Tab 40 Mg PO HS Aspirin 81 Mg Tabdr 81 Mg PO DAILY Review of Systems Except as stated in HPI: all other systems reviewed are Neg Physical Exam Narrative GENERAL: Well-nourished, well-developed male patient, ambulatory. Afebrile. SKIN: Focused skin assessment warm/dry. HEAD: Normocephalic. Atraumatic. EYES: No scleral icterus. No injection or drainage. NECK: Supple, trachea midline. No JVD or lymphadenopathy. CARDIOVASCULAR: Regular rate and rhythm without murmurs, gallops, or rubs. RESPIRATORY: Breath sounds equal bilaterally. No accessory muscle use. Lungs sounds are clear to auscultation. GASTROINTESTINAL: Abdomen soft, non-tender, nondistended. MUSCULOSKELETAL: No cyanosis, or edema. BACK: Nontender without obvious deformity. No CVA tenderness. Data Data Last Documented VS Vital Signs Date Time Temp Pulse Resp B/P Pulse Ox O2 Delivery O2 Flow Rate FiO2 07/19/16 15:25 139/90 130/84 07/19/16 14:44 98.2 78 18 98 Orders Electrocardiogram (07/19/16 15:16) Basic Metabolic Panel (Bmp) (07/19/16 15:16) Ckmb (Isoenzyme) Profile (07/19/16 15:16) Complete Blood Count With Diff (07/19/16 15:16) Magnesium (Mg) (07/19/16 15:16) Prothrombin Time / Inr (Pt) (07/19/16 15:16) Act Partial Throm Time (Ptt) (07/19/16 15:16) Troponin I (07/19/16 15:16) Chest, Single Ap (07/19/16 15:16) Ecg Monitoring (07/19/16 15:16) Bilateral Bp Monitoring (07/19/16 15:16) Iv Access Insert/Monitor (07/19/16 15:16) Oximetry (07/19/16 15:16) Oxygen Administration (07/19/16 15:16) Sodium Chloride 0.9% Flush (Ns Flush) (07/19/16 15:30) CKMB (07/19/16 15:20) CKMB% (07/19/16 15:20) Nitroglycerin Sl (Nitrostat Sl) (07/19/16 16:15) Acetaminophen (Tylenol) (07/19/16 18:00) Labs Laboratory Tests Test 07/19/16 15:20 White Blood Count 4.2 TH/MM3 Red Blood Count 4.67 MIL/MM3 Hemoglobin 13.3 GM/DL Hematocrit 39.8 % Mean Corpuscular Volume 85.0 FL Mean Corpuscular Hemoglobin 28.5 PG Mean Corpuscular Hemoglobin 33.5 % Concent Red Cell Distribution Width 16.1 % Platelet Count 226 TH/MM3 Mean Platelet Volume 8.4 FL Neutrophils (%) (Auto) 45.0 % Lymphocytes (%) (Auto) 41.7 % Monocytes (%) (Auto) 9.6 % Eosinophils (%) (Auto) 2.7 % Basophils (%) (Auto) 1.0 % Neutrophils # (Auto) 1.9 TH/MM3 Lymphocytes # (Auto) 1.7 TH/MM3 Monocytes # (Auto) 0.4 TH/MM3 Eosinophils # (Auto) 0.1 TH/MM3 Basophils # (Auto) 0.0 TH/MM3 CBC Comment DIFF FINAL Differential Comment Prothrombin Time 10.6 SEC Prothromb Time International 1.0 RATIO Ratio Activated Partial 26.7 SEC Thromboplast Time Sodium Level 140 MEQ/L Potassium Level 4.4 MEQ/L Chloride Level 104 MEQ/L Carbon Dioxide Level 29.0 MEQ/L Anion Gap 7 MEQ/L Blood Urea Nitrogen 11 MG/DL Creatinine 0.93 MG/DL Estimat Glomerular Filtration 102 ML/MIN Rate Random Glucose 90 MG/DL Calcium Level 9.2 MG/DL Magnesium Level 2.1 MG/DL Total Creatine Kinase 140 U/L Creatine Kinase MB 2.5 NG/ML Troponin I 0.02 NG/ML MDM Medical Decision Making Medical Screen Exam Complete: Yes Emergency Medical Condition: Yes Medical Record Reviewed: Yes Interpretation(s) chest x-ray - CONCLUSION: No acute cardiopulmonary abnormality is identified. Differential Diagnosis Atypical chest pain versus chest wall pain versus ACS versus CHF Narrative Course 56-year-old male presents to the emergency department for evaluation of chest pain that started at 1 AM this morning. He does report history of same chest pain and states he gets every day for several months. He states he had a normal stress test done in March 2016. EKG shows sinus rhythm, heart rate 73 , no acute ST changes. CBC, BMP, CK, troponin, magnesium, PTT, PTT/INR ordered and pending. Chest x-ray is ordered and pending. CBC is unremarkable. BMP is unremarkable. CK is 140. Troponin is 0.02. Magnesium is 2.1. Coags are unremarkable. Chest x-ray shows no acute cardiopulmonary abnormality. I have attempted to obtain records from [facility] in [place] regarding his stress test, but have been unable to get them. Patient's integration solution architect, Dr. Doss, is paged. Patient reports headache after Nitro. He reports no improvement in chest pain after nitro. Patient is given Tylenol for headache. I am unable to verify the patient had a recent stress test or that it was normal. I attempted to call Dr. Doss but he is not electronics specialist and I am unable to speak to him. I discussed this with my attending physician, Dr. Ty, who would like patient to be brought into the [facility]. Patient agrees with this plan. Diagnosis Primary Impression: Atypical chest pain Admitting Information Admitting Physician Requests: Adelia Rodrigues July 19, 2016 15:17
[2016-07-19] MEDS ORDERED: SODIUM CHLORIDE 0.9% FLUSH 10 ML FLUSH IVF PRN (15:30)
[2016-07-19 15:49] LABS: AUTOMATED NEUTROPHIL # 1.9 TH/MM3 (1.8-7.7); EOSINOPHIL # 0.1 TH/MM3 (0-0.4); EOSINOPHIL % 2.7 % (0.0-4.0); HEMATOCRIT 39.8 % (39.0-51.0); HEMO FLAGS DIFF FINAL; LYMPH % 41.7 % (9.0-44.0); LYMPHOCYTE # 1.7 TH/MM3 (1.0-4.8); MEAN CORPUSCULAR HEMOGLOBIN 28.5 PG (27.0-34.0); MEAN CORPUSCULAR HGB CONC 33.5 % (32.0-36.0); MONO % 9.6 % (0.0-8.0); PLATELET COUNT 226 TH/MM3 (150-450); RED BLOOD COUNT 4.67 MIL/MM3 (4.50-5.90); RED CELL DISTRIBUTION WIDTH 16.1 % (11.6-17.2); WHITE BLOOD COUNT 4.2 TH/MM3 (4.0-11.0)
[2016-07-19 15:55] LABS: APTT (PATIENT) 26.7 SEC (24.3-30.1); PROTHROMBIN TIME - PATIENT 10.6 SEC (9.8-11.6)
[2016-07-19 16:01] LABS: CREATINE KINASE 140 U/L (39-308)
[2016-07-19 16:14] LABS: CKMB 2.5 NG/ML (0.5-3.6)
[2016-07-19] MEDS ORDERED: NITROGLYCERIN 0.4 MG SL 25 TABS/BTL SL ONE (16:15)
[2016-07-19 16:23] LABS: ANION GAP 7 MEQ/L (5-15); BLOOD UREA NITROGEN 11 MG/DL (7-18); CHLORIDE 104 MEQ/L (98-107); GLOMERULAR FILTRATION RATE 102 ML/MIN (>89); MAGNESIUM 2.1 MG/DL (1.5-2.5); POTASSIUM 4.4 MEQ/L (3.5-5.1); SODIUM (NA) 140 MEQ/L (136-145)
--- NOTE | 2016-07-19 16:23 | RADRPT ---
EXAM DATE/TIME: 07/19/2016 15:40 [place] COMPARISON: CHEST SINGLE AP, May 16, 2016, 11:27. INDICATIONS : Chest pain, short of breath MEDICAL HISTORY : None. SURGICAL HISTORY : None. ENCOUNTER: Initial ACUITY: 1 day PAIN SCORE: 5/10 LOCATION: Bilateral chest FINDINGS: Portable AP view of the chest demonstrates a normal-sized cardiac silhouette. Patient is rotated and underinflated with mild atelectasis at the lung bases. No pleural effusion, consolidation, or pneumot horax is identified. Bones and soft tissues demonstrate no acute finding. CONCLUSION: No acute cardiopulmonary abnormality is identified. Enrique Hilliard MD on July 19, 2016 at 16:20 Board Certified Radiologist. This report was verified electronically.
[2016-07-19] MEDS ORDERED: ACETAMINOPHEN 325 MG TAB PO ONE (18:00)
[2016-07-19 19:29] LABS: CREATINE KINASE 123 U/L (39-308)
[2016-07-19 19:41] LABS: CKMB 2.8 NG/ML (0.5-3.6)
[2016-07-19 22:37] LABS: CREATINE KINASE 169 U/L (39-308)
[2016-07-19 22:49] LABS: CKMB 1.9 NG/ML (0.5-3.6)
[2016-07-20 00:02] VITALS: BP 133/83; PULSE 74; RESP 21; TEMP 98.2; O2SAT 93
[2016-07-20 04:52] VITALS: BP 178/92; PULSE 68; RESP 20; TEMP 98; O2SAT 94
[2016-07-20 07:21] VITALS: O2SAT 98
[2016-07-20 08:00] VITALS: PULSE 67
[2016-07-20 08:28] VITALS: BP 144/93; PULSE 68; RESP 19; TEMP 97.9; O2SAT 92
--- NOTE | 2016-07-20 09:05 | HHI.HP ---
HPI Primary Care Physician None Chief Complaint Chest pain History of Present Illness 56-year-old male with history of dilated cardiomyopathy with an ejection fraction of 20% presents to emergency room for further evaluation of chest pain. Endorses daily chest pain for months. However yesterday chest pain was "worse than normal." Also complains of neck pain and headache. Chest pain location left anterior chest. Characterized as tightness. No radiation of pain. No known precipitating or relieving factors. No associated symptoms. Pain would last seconds. In regards to his neck states it hurt to move it. Headache has since subsided. Patient is a poor historian. Review of Systems General: No fatigue,weakness, fever, chills, or recent illness. Endorses hospitalization in March and [facility] for congestive heart failure and liver issues. States he is compliant with medications. HEENT: No current headache. No vision changes, no nasal congestion or drainage , no dysphasia CV: As stated above. No current chest pain or pressure. States pain comes on quickly last seconds. No palpitations, intermittent leg pain, dizziness RESP: No SOB, cough, wheeze, or recent URI. Endorses COPD. GI: No nausea, vomiting, bowel changes, diarrhea, constipation, pain, distention , melena, blood in the stool. No change in appetite, no unintentional weight gain or weight loss : No dysuria, urgency, frequency EXT: No lower leg edema, no paraesthesias MS: Chronic bilateral knee pain, states this is from arthritis. No change in ROM. NEURO: No change in memory, dizziness, difficulty with balance, LOC, motor/ sensory deficits PSYCH: No anxiety or depression SKIN: No rashes, no concerning lesions Past Family Social History Allergies: Coded Allergies: Flu Vaccine (Verified Allergy, Unknown, 07/19/16) Past Medical History Congestive heart failure with reduced LVEF, dilated cardiomyopathy- EF 20%, hepatic encephalopathy, GERD, hypertension, COPD, cirrhosis, past EtOH and substance abuse, chronic bilateral knee pain Past Surgical History None Reported Medications Reported Meds & Active Scripts Active Metoprolol Tartrate 50 Mg Tab 50 Mg PO BID Lisinopril 5 Mg Tab 10 Mg PO DAILY Advair Diskus Inh (Fluticasone-Salmeterol Inh) 500-50 Mcg/Blist Aer 1 Puff INH BID Rinse mouth after use. Ventolin Hfa 18 GM Inh (Albuterol Sulfate) 90 Mcg/Act Aer 2 Puff INH Q4-6H PRN Isosorbide Mononitrate ER (Isosorbide Mononitrate) 30 Mg Balbina 30 Mg PO DAILY@07 Protonix (Pantoprazole Sodium) 40 Mg Tab 40 Mg PO DAILY Lactulose Liq (Lactulose) 10 Gm/15 Ml Soln 30 Ml PO Q6H 30 Days Reported Furosemide 40 Mg Tab 40 Mg PO DAILY Atorvastatin (Atorvastatin Calcium) 40 Mg Tab 40 Mg PO HS Aspirin 81 Mg Tabdr 81 Mg PO DAILY Active Ordered Medications Current Medications Medications (Trade) Dose Ordered Sig/Harish Route Start Time Stop Time Status Last Admin (NS Flush) 2 ml UNSCH PRN IVF 07/19/16 15:30 Family History Noncontributory for early onset cardiovascular disease Social History No known diabetes or hyperlipidemia. Endorses hypertension. Recently quit smoking 2 months ago. Prior to quitting smoking one pack cigarettes daily since age 13. Denies any current alcohol or illegal drug use. States he quit drinking one year ago and quit illegal drug use 2 years ago. Endorses he is sedentary and limited due to chronic bilateral knee pain. He is currently unemployed. Past cardiac testing Patient believes he had a chemical stress test March of this year when hospitalized at [facility], however records have been received and only testing confirmed was an echocardiogram. Denies any past cardiac catheterizations. Follows with Dr. Buster Doss. In fact he seen his senior associate 07/16/16, with a follow-up in 3 months. States he has been told he may need a defibrillator in the future due to his "weak heart." Physical Exam Vital Signs Vital Signs Date Time Temp Pulse Resp B/P Pulse Ox O2 Delivery O2 Flow Rate FiO2 07/20/16 08:28 97.9 68 19 144/93 92 07/20/16 07:21 98 21 07/20/16 04:52 98.0 68 20 178/92 94 07/20/16 00:02 98.2 74 21 133/83 93 07/19/16 20:37 98.4 77 18 176/113 97 07/19/16 19:21 95 07/19/16 19:01 98.6 79 22 160/94 98 Room Air 07/19/16 18:28 96 21 07/19/16 15:25 139/90 130/84 07/19/16 15:00 82 14 105/71 98 Room Air 07/19/16 14:44 98.2 78 18 135/88 98 Physical Exam GENERAL: Alert WN, WD, NAD, male who appears older than stated age HEAD: NC, AT NECK: Supple, no masses, trachea midline CV: RRR, without murmur, rub, gallop, no JVD, S1-S2 no S3-S4. No carotid or femoral bruits RESP: Clear lungs throughout bilateral, no crackles, wheeze, rhonchi, symmetrical chest rise, nonlabored, able to speak in full sentences ABD: Soft, NT, ND, no masses, positive bowel tones BACK: No CVAT, no scoliosis EXT: Pulses +24, no dependent edema MS: Normal tone 4 extremities, nontender, no obvious deformities, full range of motion NEURO: CN II through CN XII grossly intact, motor strength 5/5, gait WNL PSYCH: A+O 3, pleasant affect, appropriate speech, appropriate mood and affect , insight and judgment SKIN: Normal turgor, normal texture, no lesions, no rashes Laboratory Laboratory Tests Test 07/19/16 07/19/16 07/19/16 15:20 18:40 21:50 White Blood Count 4.2 Red Blood Count 4.67 Hemoglobin 13.3 Hematocrit 39.8 Mean Corpuscular Volume 85.0 Mean Corpuscular Hemoglobin 28.5 Mean Corpuscular Hemoglobin 33.5 Concent Red Cell Distribution Width 16.1 Platelet Count 226 Mean Platelet Volume 8.4 Neutrophils (%) (Auto) 45.0 Lymphocytes (%) (Auto) 41.7 Monocytes (%) (Auto) 9.6 Eosinophils (%) (Auto) 2.7 Basophils (%) (Auto) 1.0 Neutrophils # (Auto) 1.9 Lymphocytes # (Auto) 1.7 Monocytes # (Auto) 0.4 Eosinophils # (Auto) 0.1 Basophils # (Auto) 0.0 CBC Comment DIFF FINAL Differential Comment Prothrombin Time 10.6 Prothromb Time International 1.0 Ratio Activated Partial 26.7 Thromboplast Time Sodium Level 140 Potassium Level 4.4 Chloride Level 104 Carbon Dioxide Level 29.0 Anion Gap 7 Blood Urea Nitrogen 11 Creatinine 0.93 Estimat Glomerular Filtration 102 Rate Random Glucose 90 Calcium Level 9.2 Magnesium Level 2.1 Total Creatine Kinase 140 123 169 Creatine Kinase MB 2.5 2.8 1.9 Troponin I 0.02 0.03 0.03 Result Diagram: 07/19/16 1520 07/19/16 1520 Imaging Last Impressions Chest X-Ray 07/19/16 1516 Signed Impressions: Service Date/Time: Tuesday, July 19, 2016 15:40 - CONCLUSION: No acute cardiopulmonary abnormality is identified. Enrique Hilliard MD Course EKGs 3 EKG show normal sinus rhythm, left axis deviation, T-wave inversion in leads 1 , aVL, V4 through V6-unchanged when compared with previous EKGs Assessment and Plan Assessment and Plan #1 Chest painadmitted to chest pain center. Ruled out with 3 sets of cardiac enzymes and EKGs. Monitored overnight. Was seen and evaluated by Dr. Austin Neri. Records from [facility] have all been reviewed. Chest discomfort musculoskeletal in nature. Encouraged him to follow with his senior associate, Dr. Doss, to determine if any further cardiac testing is required on an outpatient basis. Continue atorvastatin and aspirin. #2 Cardiomyopathyeducated and counseled on importance of medication adherence and keeping follow-up with senior associate and to establish with a primary care provider. Educated on risk of reduced ejection fraction including risk of sudden . Continue metoprolol, isosorbide, and furosemide #3 Hypertensioncontinue lisinopril #4 GERDcontinue Protonix #5 COPDcontinue Advair and Ventolin inhalers #6 Musculoskeletal paininstructed to use heating pad to affected area. May use [id number] Aleve or Motrin on an as needed basis for pain instructed to take with food. Follow-up with PCP if pain persists. Gaby Lyn July 20, 2016 09:04
[2016-07-20] MEDS ORDERED: NITROGLYCERIN 0.4 MG SL 25 TABS/BTL SL PRN (09:45)
[2016-07-20] MEDS ORDERED: ACETAMINOPHEN 500 MG CPLT PO PRN (09:45)
[2016-07-20] MEDS ORDERED: ONDANSETRON HCL 4 MG/2 ML VIAL IV PRN (09:45)
[2016-07-20 11:56] VITALS: BP 149/96; PULSE 72; RESP 18; TEMP 98.3; O2SAT 94
--- NOTE | 2016-07-20 13:48 | HHI.DCPOC ---
Discharge Care Plan Diagnosis: (1) Musculoskeletal chest pain (2) History of congestive heart failure Goals to Promote Your Health * To prevent worsening of your condition and complications * To maintain your health at the optimal level Directions to Meet Your Goals Take your medications as prescribed Follow your dietary instruction Follow activity as directed Keep your appointments as scheduled Take your immunizations and boosters as scheduled If your symptoms worsen call your PCP, if no PCP go to Urgent Care Center or Emergency Room Smoking is Dangerous to Your Health. Avoid second hand smoke Call the 24-hour hour crisis hotline for domestic abuse at Gaby Lyn July 20, 2016 13:48
--- NOTE | 2016-07-20 13:53 | EKG ---
Date Performed: 07/19/2016 Time Performed: 21:49:10 PTAGE: 56 years EKG: Sinus rhythm WITH FIRST DEGREE AV BLOCK WITH OCCASIONAL SUPRAVENTRICULAR PREMATURE COMPLEXES LOW QRS VOLTAGE IN P RECORDIAL LEADS MODERATE T-WAVE ABNORMALITY, CONSIDER LATERAL ISCHEMIA ABNORMAL ECG PREVIOUS TRACING : 07/19/2016 18.44 Since previous tracing, no significant change noted DOCTOR: Austin Neri Interpretating Date/Time 07/20/2016 13:51:57
--- NOTE | 2016-07-20 13:53 | EKG ---
Date Performed: 07/19/2016 Time Performed: 18:44:40 PTAGE: 56 years EKG: Sinus rhythm BORDERLINE LEFT AXIS DEVIATION LEFT VENTRICULAR HYPERTROPHY AND ST-T CHANGE ABNORMAL ECG PREVIOUS TRACING : 07/19/2016 15.13 Since previous tracing, no significant change noted DOCTOR: Austin Neri Interpretating Date/Time 07/20/2016 13:53:04
--- NOTE | 2016-07-20 13:56 | EKG ---
Date Performed: 07/19/2016 Time Performed: 15:13:06 PTAGE: 56 years EKG: Sinus rhythm BORDERLINE LEFT AXIS DEVIATION LEFT VENTRICULAR HYPERTROPHY AND ST-T CHANGE ABNORMAL ECG PREVIOUS TRACING : 05/16/2016 11.51 Since previous tracing, no significant change noted DOCTOR: Austin Neri Interpretating Date/Time 07/20/2016 13:55:19
[2016-07-20] MEDS ORDERED: SODIUM CHLORIDE 0.9% FLUSH 10 ML FLUSH IV FLUSH SCH (21:00)
== END 2016-07-20 15:52 | disposition home or self-care (01) ==
LOC: NEPC 14:40 → NEDA 18:14 → NEPHCDU 19:46
DX: R07.89 Other chest pain (principal); I42.0 Dilated cardiomyopathy; I11.0 Hypertensive heart disease with heart failure; I50.9 Heart failure, unspecified; J44.9 Chronic obstructive pulmonary disease, unspecified; M79.1 Myalgia; E78.00 Pure hypercholesterolemia, unspecified; E78.5 Hyperlipidemia, unspecified; K21.9 Gastro-esophageal reflux disease without esophagitis; K74.60 Unspecified cirrhosis of liver; Z88.7 Allergy status to serum and vaccine; Z79.82 Long term (current) use of aspirin; Z87.891 Personal history of nicotine dependence
CPT/HCPCS: 71010; 80048; 82550; 82552; 83735; 84484; 85025; 85610; 85730; 93005; 99285; G0378

== ENCOUNTER 2016-12-19 19:40 | Observation (INO) | payer MEDICAID ==
[~2016-12-19] VITALS: Ht 182.9 cm; Wt 105.5 kg
[~2016-12-19 19:40] MED LIST changes: -FOLI5CAP PO; -SPIR25TA PO; -THIA100T PO
[2016-12-19 19:42] VITALS: BP 182/101; PULSE 65; RESP 16; TEMP 97.8; O2SAT 98
--- NOTE | 2016-12-19 20:41 | PD ---
HPI Chief Complaint: Abdominal Pain Time Seen by Provider: 20:24 Travel History International Travel<30 days: No Contact w/Intl Traveler<30days: No Traveled to known affect area: No History of Present Illness HPI 56-year-old male presents to the emergency department for evaluation of headache , chest pain, abdominal pain. Patient states he has had intermittent "all over " headache for the past 3 days. He states he has had headaches in the past, but never lasted this long. He has reports chest pain that has been intermittent for several months. He states it is the same chest pain he has been evaluated with before. Was determined to be musculoskeletal chest pain. He does follow with the delimber operator, but cannot remember the name of the delimber operator. He states it is not Dr. Doss. Patient also states that he is having abdominal pain around his umbilicus. He does have history of liver cirrhosis,, dilated cardiomyopathy with an ejection fraction of 20%, hepatic encephalopathy, GERD, hypertension, COPD, has EtOH and substance abuse, chronic bilateral knee pain. Patient denies any abdominal surgeries. He states that he is not currently follow-up to stone setter, but is working on a referral through his primary care physician. The patient's sister talks to me and is concerned that his ammonia level may be elevated stating that he has been slightly confused recently. No fevers or chills. No visual changes. PFSH Past Medical History Asthma: No Blood Disorders: No Heart Rhythm Problems: No Cancer: No Cardiac Catheterization: No Cardiovascular Problems: Yes (HTN, CHF) High Cholesterol: Yes Chemotherapy: No Chest Pain: No Congestive Heart Failure: Yes Cirrhosis: Yes COPD: No Diabetes: No Diminished Hearing: No GERD: Yes Genitourinary: No Hypertension: Yes Immune Disorder: No Musculoskeletal: No Neurologic: No Psychiatric: No Reproductive: No Respiratory: Yes (COPD) Radiation Therapy: No Sleep Apnea: No Thyroid Disease: No Tetanus Vaccination: < 5 Years Influenza Vaccination: No Past Surgical History Coronary Artery Bypass Graft: No Other Surgery: No Family History Family Myocardial Infarction: Yes (BROTHER) Social History Alcohol Use: No Tobacco Use: No Substance Use: No Allergies-Medications (Allergen,Severity, Reaction): Coded Allergies: Influenza Virus Vaccines (Unverified Allergy, Unknown, 10/29/16) Reported Meds & Prescriptions Reported Meds & Active Scripts Active Isosorbide Mononitrate ER (Isosorbide Mononitrate) 30 Mg Balbina 30 Mg PO DAILY@07 Advair Diskus Inh (Fluticasone-Salmeterol Inh) 500-50 Mcg/Blist Aer 1 Puff INH BID Rinse mouth after use. Metoprolol Tartrate 50 Mg Tab 50 Mg PO BID Lisinopril 5 Mg Tab 10 Mg PO DAILY Ventolin Hfa 18 GM Inh (Albuterol Sulfate) 90 Mcg/Act Aer 2 Puff INH Q4-6H PRN Lactulose Liq (Lactulose) 10 Gm/15 Ml Soln 30 Ml PO Q6H 30 Days Reported Aspirin 81 Mg Tabdr 81 Mg PO DAILY Review of Systems Except as stated in HPI: all other systems reviewed are Neg Physical Exam Narrative GENERAL: Well-nourished, well-developed male patient, afebrile. SKIN: Focused skin assessment warm/dry. HEAD: Normocephalic. Atraumatic. ENT: Mucosa pink and moist. No erythema or exudates. No uvular edema. No uvular , palatal, or tonsillar deviation. Airway patent. Nasal turbinates appear normal without nasal blood, purulent drainage or septal hematoma. Bilateral tympanic membranes are clear without erythema or perforation. EYES: No scleral icterus. No injection or drainage. NECK: Supple, trachea midline. No JVD or lymphadenopathy. CARDIOVASCULAR: Regular rate and rhythm without murmurs, gallops, or rubs. RESPIRATORY: Breath sounds equal bilaterally. No accessory muscle use. Lungs sounds are clear to auscultation. GASTROINTESTINAL: Abdomen distended, tender around the umbilicus. MUSCULOSKELETAL: No cyanosis, or edema. BACK: Nontender without obvious deformity. No CVA tenderness. Data Data Last Documented VS Vital Signs Date Time Temp Pulse Resp B/P (MAP) Pulse Ox O2 Delivery O2 Flow Rate FiO2 12/19/16 22:11 98 Room Air 12/19/16 19:42 97.8 65 16 Orders Orders Abdomen, Kub Only (12/19/16 ) Chest, Pa & Lat (12/19/16 ) Complete Blood Count With Diff (12/19/16 20:23) Comprehensive Metabolic Panel (12/19/16 20:23) Electrocardiogram (12/19/16 ) Lipase (12/19/16 20:35) Prothrombin Time / Inr (Pt) (12/19/16 20:35) Act Partial Throm Time (Ptt) (12/19/16 20:35) Urinalysis - C+S If Indicated (12/19/16 20:35) Ct Abd/Pel W Iv Contrast(Rout) (12/19/16 20:35) Iv Access Insert/Monitor (12/19/16 20:35) Ecg Monitoring (12/19/16 20:35) Oximetry (12/19/16 20:35) Sodium Chloride 0.9% Flush (Ns Flush) (12/19/16 20:45) Ct Brain W/O Iv Contrast(Rout) (12/19/16 ) B-Type Natriuretic Peptide (12/19/16 20:35) Ammonia (12/19/16 20:35) Creatine Kinase (Cpk) (12/19/16 20:35) Troponin I (12/19/16 20:35) Hydralazine Inj (Apresoline Inj) (12/19/16 21:30) Labs Laboratory Tests Test 12/19/16 20:35 White Blood Count 6.0 TH/MM3 Red Blood Count 4.98 MIL/MM3 Hemoglobin 14.7 GM/DL Hematocrit 43.2 % Mean Corpuscular Volume 86.7 FL Mean Corpuscular Hemoglobin 29.5 PG Mean Corpuscular Hemoglobin Concent 34.0 % Red Cell Distribution Width 14.6 % Platelet Count 269 TH/MM3 Mean Platelet Volume 8.6 FL Neutrophils (%) (Auto) 60.4 % Lymphocytes (%) (Auto) 29.7 % Monocytes (%) (Auto) 7.4 % Eosinophils (%) (Auto) 2.0 % Basophils (%) (Auto) 0.5 % Neutrophils # (Auto) 3.6 TH/MM3 Lymphocytes # (Auto) 1.8 TH/MM3 Monocytes # (Auto) 0.4 TH/MM3 Eosinophils # (Auto) 0.1 TH/MM3 Basophils # (Auto) 0.0 TH/MM3 CBC Comment DIFF FINAL Differential Comment Prothrombin Time 11.3 SEC Prothromb Time International Ratio 1.0 RATIO Activated Partial Thromboplast Time 22.1 SEC Blood Urea Nitrogen 8 MG/DL Creatinine 0.96 MG/DL Random Glucose 108 MG/DL Total Protein 8.2 GM/DL Albumin 4.0 GM/DL Calcium Level 9.3 MG/DL Alkaline Phosphatase 101 U/L Aspartate Amino Transf (AST/SGOT) 31 U/L Alanine Aminotransferase (ALT/SGPT) 31 U/L Total Bilirubin 0.6 MG/DL Sodium Level 136 MEQ/L Potassium Level 4.3 MEQ/L Chloride Level 102 MEQ/L Carbon Dioxide Level 27.9 MEQ/L Anion Gap 6 MEQ/L Estimat Glomerular Filtration Rate 98 ML/MIN Ammonia 46 MCMOL/L Total Creatine Kinase 213 U/L Troponin I 0.02 NG/ML B-Type Natriuretic Peptide 100 PG/ML Lipase 58 U/L MDM Medical Decision Making Medical Screen Exam Complete: Yes Emergency Medical Condition: Yes Medical Record Reviewed: Yes Interpretation(s) Abdomen KUB CONCLUSION: No acute disease. Chest x-ray - CONCLUSION: No acute disease. Differential Diagnosis Liver cirrhosis versus hyperammonia anemia versus hepatic encephalopathy versus musculoskeletal chest pain versus ACS versus CHF exacerbation versus migraine headache versus intracranial abnormality Narrative Course 56 year old male presents to the emergency department for evaluation of headache , chest pain, abdominal pain. Patient was admitted in July for the same chest pain. He states that he has been having the same chest pain intermittently for many months. It was determined it was musculoskeletal chest pain at that time. Patient denies any change in the chest pain. He has reports headache that is management for the past 3 days as well as abdominal pain for 3 days. Chest x- ray and KUB of the abdomen are ordered in triage. EKG shows sinus rhythm, heart rate 61, no acute ST changes. CBC, CMP, lipase, CK, troponin, BNP, troponin level, PTT, PT/INR, UA are ordered and pending. CT abdomen/pelvis with IV contrast, CT of the brain are ordered and pending. Abdomen KUB shows no acute disease. Chest x-ray shows no acute disease. CBC is unremarkable. CMP shows no acute abnormality. CK is 213. Troponin is 0.02. BNP is 100. Lipase is 58. Ammonia is 46. Coags show no acute abnormality. CTs are pending. Dr. Bangura will follow up on results and disposition patient. Adelia Menendez Dec 19, 2016 20:41
[2016-12-19] MEDS ORDERED: SODIUM CHLORIDE 0.9% FLUSH 10 ML FLUSH IV FLUSH PRN (20:45)
--- NOTE | 2016-12-19 20:45 | RADRPT ---
EXAM DATE/TIME: 12/19/2016 20:23 [facility] COMPARISON: No previous studies available for comparison. INDICATIONS : Abdominal pain- evaluate for obstruction. MEDICAL HISTORY : Hypercholesterolemia. Hypertension Chronic obstructive pulmonary disease. Congestive heart failur e, Coronary artery disease, GERD. SURGICAL HISTORY : None. ENCOUNTER: Initial ACUITY: 4 - 6 days PAIN SCORE: 9/10 LOCATION: Abdomen. FINDINGS: Supine view of the abdomen was performed. The abdominal bowel gas pattern is normal. No abnormal ma sses, calcifications, or organomegaly is seen. The osseous structures are unremarkable. CONCLUSION: No acute disease. Enrique Batista MD on December 19, 2016 at 20:43 Board Certified Radiologist. This report was verified electronically.
--- NOTE | 2016-12-19 20:46 | RADRPT ---
EXAM DATE/TIME: 12/19/2016 20:19 [facility] COMPARISON: ABDOMEN KUB ONLY, December 19, 2016, 20:23. INDICATIONS : Chest pain and shortness of breath. MEDICAL HISTORY : Hypertension. Hypercholesterolemia. Congestive heart failure. Coronary artery disease, COPD, GERD . SURGICAL HISTORY : None. ENCOUNTER: Initial ACUITY: 4 - 6 days PAIN SCORE: 9/10 LOCATION: Bilateral chest Middle. FINDINGS: PA and lateral views of the chest demonstrate the lungs to be symmetrically aerated without evidence of mass, infiltrate or effusion. The cardiomediastinal contours are unremarkable. Osseous structure s are intact. CONCLUSION: No acute disease. Enrique Batista MD on December 19, 2016 at 20:44 Board Certified Radiologist. This report was verified electronically.
[2016-12-19 20:47] LABS: AUTOMATED NEUTROPHIL # 3.6 TH/MM3 (1.8-7.7); BASOPHIL % 0.5 % (0.0-2.0); EOSINOPHIL # 0.1 TH/MM3 (0-0.4); HEMATOCRIT 43.2 % (39.0-51.0); HEMO FLAGS DIFF FINAL; LYMPH % 29.7 % (9.0-44.0); LYMPHOCYTE # 1.8 TH/MM3 (1.0-4.8); MEAN CELL VOLUME 86.7 FL (80.0-100.0); MEAN CORPUSCULAR HEMOGLOBIN 29.5 PG (27.0-34.0); MONO % 7.4 % (0.0-8.0); NEUT % 60.4 % (16.0-70.0); PLATELET COUNT 269 TH/MM3 (150-450); RED BLOOD COUNT 4.98 MIL/MM3 (4.50-5.90); RED CELL DISTRIBUTION WIDTH 14.6 % (11.6-17.2)
[2016-12-19 21:04] LABS: ALT (GPT) 31 U/L (12-78)
[2016-12-19 21:06] LABS: ALKALINE PHOSPHATASE 101 U/L (45-117); TOTAL BILIRUBIN ADULT 0.6 MG/DL (0.2-1.0)
[2016-12-19 21:08] LABS: ANION GAP 6 MEQ/L (5-15); AST (GOT) 31 U/L (15-37); BICARBONATE 27.9 MEQ/L (21.0-32.0); BLOOD UREA NITROGEN 8 MG/DL (7-18); CHLORIDE 102 MEQ/L (98-107); GLOMERULAR FILTRATION RATE 98 ML/MIN (>89); SODIUM (NA) 136 MEQ/L (136-145)
[2016-12-19 21:09] LABS: APTT (PATIENT) 22.1 SEC (24.3-30.1); PROTHROMBIN TIME - PATIENT 11.3 SEC (9.8-11.6)
[2016-12-19 21:10] LABS: POTASSIUM 4.3 MEQ/L (3.5-5.1)
[2016-12-19] MEDS ORDERED: hydrALAZINE HCL 20 MG/ML VIAL IV PUSH ONE (21:30)
[2016-12-19 22:11] VITALS: O2SAT 98
[2016-12-19] MEDS ORDERED: IOHEXOL 350 MG/ML 10 ML VIAL (for RAD DIAG) IVCONTRAST ONE (22:56)
--- NOTE | 2016-12-19 23:07 | RADRPT ---
EXAM DATE/TIME: 12/19/2016 22:32 [facility] COMPARISON: CT BRAIN W/O CONTRAST, May 17, 2016, 9:05. INDICATIONS : Cephalgia. RADIATION DOSE: 56.35 CTDIvol (mGy) MEDICAL HISTORY : Hypertension. Congestive heart failure. Cirrhosis. SURGICAL HISTORY : None. ENCOUNTER: Initial ACUITY: 1 day PAIN SCALE: 9/10 LOCATION: cranial TECHNIQUE: Multiple contiguous axial images were obtained of the head. Using automated exposure control and adj ustment of the mA and/or kV according to patient size, radiation dose was kept as low as reasonably a chievable to obtain optimal diagnostic quality images. DICOM format image data is available electro nically for review and comparison. FINDINGS: CEREBRUM: The ventricles are normal for age. No evidence of midline shift, mass lesion, hemorrhage or acute in farction. No extra-axial fluid collections are seen. POSTERIOR FOSSA: The cerebellum and brainstem are intact. The 4th ventricle is midline. The cerebellopontine angle i s unremarkable. EXTRACRANIAL: The visualized portion of the orbits is intact. SKULL: The calvaria is intact. No evidence of skull fracture. CONCLUSION: Normal examination. Marcin Johnson Jr., MD on December 19, 2016 at 23:05 Board Certified Radiologist. This report was verified electronically.
--- NOTE | 2016-12-19 23:12 | RADRPT ---
EXAM DATE/TIME: 12/19/2016 22:35 [facility] COMPARISON: CT ABDOMEN & PELVIS W/O CONTRAST, May 16, 2016, 18:48. INDICATIONS : Abdomen pain with nausea and constipation. IV CONTRAST: 100 cc Omnipaque 350 (iohexol) IV ORAL CONTRAST: No oral contrast ingested. RADIATION DOSE: 11.49 CTDIvol (mGy) MEDICAL HISTORY : Cirrhosis. Congestive heart failure. Hypertension. SURGICAL HISTORY : None. ENCOUNTER: Initial ACUITY: 1 day PAIN SCALE: 9/10 LOCATION: Bilateral Abdomen TECHNIQUE: Volumetric scanning of the abdomen and pelvis was performed. Using automated exposure control and ad justment of the mA and/or kV according to patient size, radiation dose was kept as low as reasonably achievable to obtain optimal diagnostic quality images. DICOM format image data is available electro nically for review and comparison. FINDINGS: LOWER LUNGS: Nodular areas of parenchymal consolidation are seen involving the medial aspects of both lung bases. These nodules measure approximately 1 cm in size. No effusions. The heart is mildly enlarged. No ning cardial effusion. LIVER: Homogeneously low density without lesion. There is no dilation of the biliary tree. No calcified ga llstones. SPLEEN: Normal size without lesion. PANCREAS: Within normal limits. KIDNEYS: Normal in size and shape. There is no mass, stone or hydronephrosis. ADRENAL GLANDS: Within normal limits. VASCULAR: There is no aortic aneurysm. BOWEL/MESENTERY: The stomach, small bowel, and colon demonstrate no acute abnormality. There is no free intraperitone al air or fluid. ABDOMINAL WALL: Within normal limits. RETROPERITONEUM: There is no lymphadenopathy. BLADDER: No wall thickening or mass. REPRODUCTIVE: Within normal limits. INGUINAL: There is no lymphadenopathy or hernia. MUSCULOSKELETAL: Within normal limits for patient age. CONCLUSION: 1. 2 small nodular areas of parenchymal consolidation within the lung bases. A followup chest CT in 6 -12 months is suggested to document resolution. 2. No acute intra-abdominal abnormality. 3. Cardiomegaly. 4. Hepatic steatosis. Marcin Johnson Jr., MD on December 19, 2016 at 23:06 Board Certified Radiologist. This report was verified electronically.
[2016-12-19 23:19] VITALS: BP 178/113; PULSE 65; RESP 18; O2SAT 97
[2016-12-19 23:47] VITALS: BP 162/98; PULSE 63; RESP 18; O2SAT 98
[2016-12-20] VITALS (11 sets, daily range): BP systolic 145–178; BP diastolic 87–104; PULSE 62–88; RESP 16–18; TEMP 97.7–98.8; O2SAT 94–98
[2016-12-20] MEDS ORDERED: KETOROLAC TROMETHAMINE 30 MG/ML (IVP) VIAL IV PUSH ONE
[2016-12-20] MEDS ORDERED: ASPIRIN 81 MG CHEW TAB PO ONE
--- NOTE | 2016-12-20 00:10 | PD ---
Physical Exam Date Seen by Provider: Dec 20, 2016 Data Data Last Documented VS Vital Signs Date Time Temp Pulse Resp B/P (MAP) Pulse Ox O2 Delivery O2 Flow Rate FiO2 12/19/16 23:47 63 18 162/98 (119) 98 Room Air 12/19/16 19:42 97.8 Orders Orders Abdomen, Kub Only (12/19/16 ) Chest, Pa & Lat (12/19/16 ) Complete Blood Count With Diff (12/19/16 20:23) Comprehensive Metabolic Panel (12/19/16 20:23) Electrocardiogram (12/19/16 ) Lipase (12/19/16 20:35) Prothrombin Time / Inr (Pt) (12/19/16 20:35) Act Partial Throm Time (Ptt) (12/19/16 20:35) Urinalysis - C+S If Indicated (12/19/16 20:35) Ct Abd/Pel W Iv Contrast(Rout) (12/19/16 20:35) Iv Access Insert/Monitor (12/19/16 20:35) Ecg Monitoring (12/19/16 20:35) Oximetry (12/19/16 20:35) Sodium Chloride 0.9% Flush (Ns Flush) (12/19/16 20:45) Ct Brain W/O Iv Contrast(Rout) (12/19/16 ) B-Type Natriuretic Peptide (12/19/16 20:35) Ammonia (12/19/16 20:35) Creatine Kinase (Cpk) (12/19/16 20:35) Troponin I (12/19/16 20:35) Hydralazine Inj (Apresoline Inj) (12/19/16 21:30) Iohexol 350 Inj (Omnipaque 350 Inj) (12/19/16 22:56) Ckmb (Isoenzyme) Profile (12/19/16 23:42) Troponin I (12/19/16 23:42) Ketorolac Inj (Toradol Inj) (12/20/16 00:00) Aspirin Chew (Aspirin Chew) (12/20/16 00:00) Admit Order (Ed Use Only) (12/20/16 00:03) Activity Bed Rest With Brp (12/20/16 00:04) Vital Signs (Adult) Q4H (12/20/16 00:04) Cardiac Rhythm .As Directed (12/20/16 00:04) Notify Dr: Other .PRN (12/20/16 00:04) Notify DrGrady Parameters (12/20/16 00:04) Resp Oxygen Nasal Cannula (12/20/16 ) Ckmb (Isoenzyme) Profile (12/20/16 00:04) Ckmb (Isoenzyme) Profile (12/20/16 03:04) Troponin I (12/20/16 00:04) Troponin I (12/20/16 03:04) Electrocardiogram (12/20/16 00:04) Electrocardiogram (12/20/16 03:04) ^ Obtain (12/20/16 00:04) Eyeglass Frames Polisher / Telemetry TWILA.Q8H (12/20/16 00:04) Labs Laboratory Tests Test 12/19/16 20:35 White Blood Count 6.0 TH/MM3 Red Blood Count 4.98 MIL/MM3 Hemoglobin 14.7 GM/DL Hematocrit 43.2 % Mean Corpuscular Volume 86.7 FL Mean Corpuscular Hemoglobin 29.5 PG Mean Corpuscular Hemoglobin Concent 34.0 % Red Cell Distribution Width 14.6 % Platelet Count 269 TH/MM3 Mean Platelet Volume 8.6 FL Neutrophils (%) (Auto) 60.4 % Lymphocytes (%) (Auto) 29.7 % Monocytes (%) (Auto) 7.4 % Eosinophils (%) (Auto) 2.0 % Basophils (%) (Auto) 0.5 % Neutrophils # (Auto) 3.6 TH/MM3 Lymphocytes # (Auto) 1.8 TH/MM3 Monocytes # (Auto) 0.4 TH/MM3 Eosinophils # (Auto) 0.1 TH/MM3 Basophils # (Auto) 0.0 TH/MM3 CBC Comment DIFF FINAL Differential Comment Prothrombin Time 11.3 SEC Prothromb Time International Ratio 1.0 RATIO Activated Partial Thromboplast Time 22.1 SEC Blood Urea Nitrogen 8 MG/DL Creatinine 0.96 MG/DL Random Glucose 108 MG/DL Total Protein 8.2 GM/DL Albumin 4.0 GM/DL Calcium Level 9.3 MG/DL Alkaline Phosphatase 101 U/L Aspartate Amino Transf (AST/SGOT) 31 U/L Alanine Aminotransferase (ALT/SGPT) 31 U/L Total Bilirubin 0.6 MG/DL Sodium Level 136 MEQ/L Potassium Level 4.3 MEQ/L Chloride Level 102 MEQ/L Carbon Dioxide Level 27.9 MEQ/L Anion Gap 6 MEQ/L Estimat Glomerular Filtration Rate 98 ML/MIN Ammonia 46 MCMOL/L Total Creatine Kinase 213 U/L Troponin I 0.02 NG/ML B-Type Natriuretic Peptide 100 PG/ML Lipase 58 U/L MDM Medical Record Reviewed: Yes Supervised Visit with JOSSELINE: Yes Narrative Course I, Dr. Bangura, have reviewed the advance practice practitioner's documentation and am in agreement, met with the patient face to face, made the diagnosis, and the medical decision making was done by me. *My assessment and Findings: Patient is a 56 year old male who presents to the ER with multiple complaints including headache, chest pain and abdominal pain. Symptoms have been intermittent in nature and have been ongoing for the past 3 days. Patient had a full workup including CT of the head, CT of the abdomen and pelvis, lab work. Patient is feeling better at this time. Plan to obs in the chest pain unit Vital Signs Date Time Temp Pulse Resp B/P (MAP) Pulse Ox O2 Delivery O2 Flow Rate FiO2 12/19/16 23:47 63 18 162/98 (119) 98 Room Air 12/19/16 23:19 65 18 178/113 (134) 97 Room Air 12/19/16 22:11 98 Room Air 12/19/16 19:42 97.8 65 16 182/101 (128) 98 Room Air Laboratory Tests Test 12/19/16 20:35 White Blood Count 6.0 TH/MM3 (4.0-11.0) Red Blood Count 4.98 MIL/MM3 (4.50-5.90) Hemoglobin 14.7 GM/DL (13.0-17.0) Hematocrit 43.2 % (39.0-51.0) Mean Corpuscular Volume 86.7 FL (80.0-100.0) Mean Corpuscular Hemoglobin 29.5 PG (27.0-34.0) Mean Corpuscular Hemoglobin Concent 34.0 % (32.0-36.0) Red Cell Distribution Width 14.6 % (11.6-17.2) Platelet Count 269 TH/MM3 (150-450) Mean Platelet Volume 8.6 FL (7.0-11.0) Neutrophils (%) (Auto) 60.4 % (16.0-70.0) Lymphocytes (%) (Auto) 29.7 % (9.0-44.0) Monocytes (%) (Auto) 7.4 % (0.0-8.0) Eosinophils (%) (Auto) 2.0 % (0.0-4.0) Basophils (%) (Auto) 0.5 % (0.0-2.0) Neutrophils # (Auto) 3.6 TH/MM3 (1.8-7.7) Lymphocytes # (Auto) 1.8 TH/MM3 (1.0-4.8) Monocytes # (Auto) 0.4 TH/MM3 (0-0.9) Eosinophils # (Auto) 0.1 TH/MM3 (0-0.4) Basophils # (Auto) 0.0 TH/MM3 (0-0.2) CBC Comment DIFF FINAL Differential Comment Prothrombin Time 11.3 SEC (9.8-11.6) Prothromb Time International Ratio 1.0 RATIO Activated Partial Thromboplast Time 22.1 SEC (24.3-30.1) Blood Urea Nitrogen 8 MG/DL (7-18) Creatinine 0.96 MG/DL (0.60-1.30) Random Glucose 108 MG/DL (74-106) Total Protein 8.2 GM/DL (6.4-8.2) Albumin 4.0 GM/DL (3.4-5.0) Calcium Level 9.3 MG/DL (8.5-10.1) Alkaline Phosphatase 101 U/L (45-117) Aspartate Amino Transf (AST/SGOT) 31 U/L (15-37) Alanine Aminotransferase (ALT/SGPT) 31 U/L (12-78) Total Bilirubin 0.6 MG/DL (0.2-1.0) Sodium Level 136 MEQ/L (136-145) Potassium Level 4.3 MEQ/L (3.5-5.1) Chloride Level 102 MEQ/L (98-107) Carbon Dioxide Level 27.9 MEQ/L (21.0-32.0) Anion Gap 6 MEQ/L (5-15) Estimat Glomerular Filtration Rate 98 ML/MIN (>89) Ammonia 46 MCMOL/L (11-32) Total Creatine Kinase 213 U/L (39-308) Troponin I 0.02 NG/ML (0.02-0.05) B-Type Natriuretic Peptide 100 PG/ML (0-100) Lipase 58 U/L (73-393) Last Impressions Abdomen/Pelvis CT 12/19/162034 Signed Impressions: Service Date/Time: December 22:35 - CONCLUSION: 1. 2 small nodular areas of parenchymal consolidation within the lung bases. A followup chest CT in 6-12 months is suggested to document resolution. 2. No acute intra-abdominal abnormality. 3. Cardiomegaly. 4. Hepatic steatosis. Marcin Johnson Jr., MD Head CT 12/19/16 0000 Signed Impressions: Service Date/Time: December 22:32 - CONCLUSION: Normal examination. Marcin Johnson Jr., MD Chest X-Ray 12/19/16 Signed Impressions: Service Date/Time: December 20:19 - CONCLUSION: No acute disease. Enrique Batista MD Abdomen X-Ray 12/19/16 Signed Impressions: Service Date/Time: December 20:23 - CONCLUSION: No acute disease. Enrique Batista MD Diagnosis Primary Impression: chest pain Admitting Information Admitting Physician Requests: Observation WillemDivine Louis MYERS Dec 20, 2016 00:10
[2016-12-20 00:48] LABS: CREATINE KINASE 178 U/L (39-308)
[2016-12-20 01:00] LABS: CKMB 1.8 NG/ML (0.5-3.6)
[2016-12-20] MEDS ORDERED: hydrALAZINE HCL 20 MG/ML VIAL IV PUSH ONE (01:15)
[2016-12-20 01:34] LABS: BLOOD, URINE NEG (NEG); GLUCOSE,URINE NEG (NEG); KETONE, URINE NEG (NEG); NITRITE,URINE NEG (NEG); SQUAMOUS EPITHELIAL CELL URINE <1 /hpf (0-5); URINE COLOR LIGHT-YELLOW (YELLW/STRAW)
[2016-12-20 01:52] LABS: COMMENT (UR) CULT NOT INDICATED; CULTURE IF INDICATED CULT NOT INDICATED
[2016-12-20 03:27] LABS: CREATINE KINASE 159 U/L (39-308)
[2016-12-20 03:39] LABS: CKMB 1.6 NG/ML (0.5-3.6)
[2016-12-20] MEDS ORDERED: LISINOPRIL 10 MG TAB PO SCH (09:00)
[2016-12-20] MEDS ORDERED: METOPROLOL TARTRATE 50 MG TAB PO SCH (09:00)
--- NOTE | 2016-12-20 09:00 | HHI.HP ---
[facility] Primary Care Physician Deny Hernandez D.O. Chief Complaint Chest pain, headache, and abdominal pain History of Present Illness This is a 56-year-old male with history of a cardiomyopathy with EF of 20%, hepatitis, cirrhosis, hypertension that presents to ED with a complaint of headache for 4 days and he believes is related to high blood pressure, also playing of abdominal pain which she states is chronic, and also developing chest discomfort yesterday morning while he was trying to sleep. It lasted better than 10 minutes but it occurred a few more times since. Found nothing in particular bring on the discomfort. States it's worse with repositioning. He was short of breath and diaphoretic. No nausea. He states abdominal pain is chronic. Denies diarrhea or constipation. He has not been vomiting. His headache he states occurs when he has high blood pressure. He believes his blood pressure was high at home but states was high when he first arrived in the ED. Voices compliance with all his medications. History of cardiomyopathy with EF 20% was obtained through prior visit at this facility however this study was not done here. When asked if he ever had a cardiac catheterization, patient response"I don't know, I don't think so." I spoke with the patient's television receiver analyzer Dr. Hernandez and he does not think he has had heart catheterization either. Cannot recall his last stress test. Review of Systems General: Patient denies fevers, chills recent, and recent travel HEENT: Patient denies sore throat, difficulty swallowing. Cardiovascular: Has the chest discomfort as mentioned above. Denies sensation of heart beating rapidly or irregularly. No syncope. He was diaphoretic. Respiratory: He was short of breath. Denies inspirational chest discomfort. Denies coughing wheezing or hemoptysis. GI: Complains of chronic abdominal pain. Patient denies nausea, vomiting, diarrhea, bloody stools. Musculoskeletal: Patient denies joint pain or edema. Denies calf pain or edema. Neurovascular: Patient denies numbness, tingling, weakness in extremities. Complains of frontal headache. Endocrine: Denies polyuria and polydipsia. Hematologic: Denies easy bruising. Skin: Denies rash or itching. Past Family Social History Allergies: Coded Allergies: Influenza Virus Vaccines (Unverified Allergy, Unknown, 10/29/16) Past Medical History Reported history of cardiomyopathy with EF of 20%. Apparently this was obtained through [facility]. Hepatitis, cirrhosis, hypertension, hyperlipidemia. Past history of smoking, states he quit 4 months ago. Past Surgical History Noncontributory. Cannot recall if he ever had a cardiac catheterization. Reported Medications Reported Meds & Active Scripts Active Isosorbide Mononitrate ER (Isosorbide Mononitrate) 30 Mg Balbina 30 Mg PO DAILY@07 Advair Diskus Inh (Fluticasone-Salmeterol Inh) 500-50 Mcg/Blist Aer 1 Puff INH BID Rinse mouth after use. Metoprolol Tartrate 50 Mg Tab 50 Mg PO BID Lisinopril 5 Mg Tab 10 Mg PO DAILY Ventolin Hfa 18 GM Inh (Albuterol Sulfate) 90 Mcg/Act Aer 2 Puff INH Q4-6H PRN Lactulose Liq (Lactulose) 10 Gm/15 Ml Soln 30 Ml PO Q6H 30 Days Reported Aspirin 81 Mg Tabdr 81 Mg PO DAILY Active Ordered Medications Current Medications Medications (Trade) Dose Ordered Sig/Harish Route Start Time Stop Time Status Last Admin (NS Flush) 2 ml UNSCH PRN IV FLUSH 12/19/16 20:45 12/20/16 08:32 (Imdur) 30 mg DAILY@07 PO 12/21/16 07:00 (Prinivil) 10 mg DAILY PO 12/20/16 09:00 (Lopressor) 50 mg BID PO 12/20/16 09:00 Family History States his brother had an NE. Social History Quit smoking 4 months ago but prior that he smoked one pack of cigarettes a 40 years. Denies alcohol or illicit drugs. Physical Exam Vital Signs Vital Signs Date Time Temp Pulse Resp B/P (MAP) Pulse Ox O2 Delivery O2 Flow Rate FiO2 12/20/16 08:36 98.0 62 16 145/98 (114) 94 12/20/16 07:50 68 12/20/16 04:50 98.4 88 18 166/101 (122) 98 12/20/16 04:01 69 12/20/16 01:52 86 12/20/16 01:40 98.8 68 18 178/87 (117) 98 12/20/16 01:26 12/20/16 01:18 70 172/104 (126) 12/20/16 00:16 98 12/19/16 23:47 63 18 162/98 (119) 98 Room Air 12/19/16 23:19 65 18 178/113 (134) 97 Room Air 12/19/16 22:11 98 Room Air 12/19/16 19:42 97.8 65 16 182/101 (128) 98 Room Air Physical Exam GENERAL: This is a well-nourished, well-developed patient, in no apparent distress. Patient speaks in clear complete sentences. Patient is pleasant. HEENT: Head is atraumatic and normocephalic. Neck is supple without lymphadenopathy and trachea is midline. No JVD or carotid bruits. CARDIOVASCULAR: Regular rate and rhythm without murmurs, gallops, or rubs. RESPIRATORY: Clear to auscultation. Breath sounds equal bilaterally. No wheezes , rales, or rhonchi. Chest wall is tender and feels similar to the discomfort he has had.. No use of accessory muscles. GASTROINTESTINAL: Abdomen is nontender, nondistended. Abdomen soft. No obvious pulsatile mass or bruit. No CVA tenderness. Strong femoral pulses bilaterally. Normal bowel sounds in all quadrants. MUSCULOSKELETAL: Patient is moving upper and lower extremities freely. No calf tenderness or edema, no Homans sign. Strong pulses in upper and lower extremities. NEUROLOGICAL: Patient is alert and oriented. Cranial nerves 2-12 are grossly intact. No focal deficits and speech is clear. SKIN: No rash and turgor is normal. Laboratory Laboratory Tests Test 12/19/16 20:35 12/20/16 00:04 12/20/16 01:20 12/20/16 02:45 White Blood Count 6.0 Red Blood Count 4.98 Hemoglobin 14.7 Hematocrit 43.2 Mean Corpuscular Volume 86.7 Mean Corpuscular Hemoglobin 29.5 Mean Corpuscular Hemoglobin Concent 34.0 Red Cell Distribution Width 14.6 Platelet Count 269 Mean Platelet Volume 8.6 Neutrophils (%) (Auto) 60.4 Lymphocytes (%) (Auto) 29.7 Monocytes (%) (Auto) 7.4 Eosinophils (%) (Auto) 2.0 Basophils (%) (Auto) 0.5 Neutrophils # (Auto) 3.6 Lymphocytes # (Auto) 1.8 Monocytes # (Auto) 0.4 Eosinophils # (Auto) 0.1 Basophils # (Auto) 0.0 CBC Comment DIFF FINAL Differential Comment Prothrombin Time 11.3 Prothromb Time International Ratio 1.0 Activated Partial Thromboplast Time 22.1 Blood Urea Nitrogen 8 Creatinine 0.96 Random Glucose 108 Total Protein 8.2 Albumin 4.0 Calcium Level 9.3 Alkaline Phosphatase 101 Aspartate Amino Transf (AST/SGOT) 31 Alanine Aminotransferase (ALT/SGPT) 31 Total Bilirubin 0.6 Sodium Level 136 Potassium Level 4.3 Chloride Level 102 Carbon Dioxide Level 27.9 Anion Gap 6 Estimat Glomerular Filtration Rate 98 Ammonia 46 Total Creatine Kinase 213 178 159 Troponin I 0.02 0.03 0.02 B-Type Natriuretic Peptide 100 Lipase 58 Creatine Kinase MB 1.8 1.6 Urine Color LIGHT-YELLOW Urine Turbidity CLEAR Urine pH 6.0 Urine Specific [place] 1.026 Urine Protein NEG Urine Glucose (UA) NEG Urine Ketones NEG Urine Occult Blood NEG Urine Nitrite NEG Urine Bilirubin NEG Urine Urobilinogen LESS THAN 2.0 Urine Leukocyte Esterase NEG Urine RBC LESS THAN 1 Urine Squamous Epithelial Cells <1 Microscopic Urinalysis Comment CULT NOT INDICATED Result Diagram: 12/19/16203412/19/162034 Imaging Last 48 hours Impressions Abdomen/Pelvis CT 12/19/162034 Signed Impressions: Service Date/Time: December 22:35 - CONCLUSION: 1. 2 small nodular areas of parenchymal consolidation within the lung bases. A followup chest CT in 6-12 months is suggested to document resolution. 2. No acute intra-abdominal abnormality. 3. Cardiomegaly. 4. Hepatic steatosis. Marcin Johnson Jr., MD Head CT 12/19/16 Signed Impressions: Service Date/Time: December 22:32 - CONCLUSION: Normal examination. Marcin Johnson Jr., MD Chest X-Ray 12/19/16 Signed Impressions: Service Date/Time: December 20:19 - CONCLUSION: No acute disease. Enrique Batista MD Abdomen X-Ray 12/19/16 Signed Impressions: Service Date/Time: December 20:23 - CONCLUSION: No acute disease. Enrique Batista MD Course EKGs are sinus rhythm with borderline first-degree AV block. No significant ST segment depressions or elevations. Caprini VTE Risk Assessment Caprini VTE Risk Assessment: No/Low Risk (score <= 1) Caprini Risk Assessment Model Point Value = 1 Point Value = 2 Point Value = 3 Point Value = 5 Age 41-60 Minor surgery BMI > 25 kg/m2 Swollen legs Varicose veins or History of unexplained or recurrent spontaneous Oral contraceptives or hormone replacement Sepsis (< 1 month) Serious lung disease, including pneumonia (< 1 month) Abnormal pulmonary function Acute myocardial infarction Congestive heart failure (< 1 month) History of inflammatory bowel disease Medical patient at bed rest Age 61-74 Arthroscopic surgery Major open surgery (> 45 min) Laparoscopic surgery (> 45 min) Malignancy Confined to bed (> 72 hours) Immobilizing plaster cast Central venous access Age >= 75 History of VTE Family history of VTE Factor V Leiden Prothrombin [id number] Lupus anticoagulant Anticardiolipin antibodies Elevated serum homocysteine Heparin-induced thrombocytopenia Other congenital or acquired thrombophilia Stroke (< 1 month) Elective arthroplasty Hip, pelvis, or leg fracture Acute spinal cord injury (< 1 month) Prophylaxis Regimen Total Risk Factor Score Risk Level Prophylaxis Regimen 0-1 Low Early ambulation 2 Moderate Order ONE of the following: *Sequential Compression Device (SCD) *Heparin 5000 units SQ BID 3-4 Higher Order ONE of the following medications: *Heparin 5000 units SQ TID *Enoxaparin/Lovenox 40 mg SQ daily (WT < 150 kg, CrCl > 30 mL/min) *Enoxaparin/Lovenox 30 mg SQ daily (WT < 150 kg, CrCl > 10-29 mL/min) *Enoxaparin/Lovenox 30 mg SQ BID (WT < 150 kg, CrCl > 30 mL/min) AND/OR *Sequential Compression Device (SCD) 5 or more Highest Order ONE of the following medications: *Heparin 5000 units SQ TID (Preferred with Epidurals) *Enoxaparin/Lovenox 40 mg SQ daily (WT < 150 kg, CrCl > 30 mL/min) *Enoxaparin/Lovenox 30 mg SQ daily (WT < 150 kg, CrCl > 10-29 mL/min) *Enoxaparin/Lovenox 30 mg SQ BID (WT < 150 kg, CrCl > 30 mL/min) AND *Sequential Compression Device (SCD) Assessment and Plan Assessment and Plan * Chest pain: Patient has history of a cardiomyopathy. He has had serial cardiac enzymes and EKGs for ruling out purposes. He will be seen by Dr. Neri cardiology and at that time we will make his plan of care. I did speak with his television receiver analyzer Dr. Hernandez and at this time will allow us to decide on the planet this hospitalization. He was seen by Dr. Neri. His symptoms appear to be musculoskeletal in nature and he will be discharged at this time with instructions to follow-up with his television receiver analyzer and PCP. * History of cardiomyopathy: Patient will need to follow-up with his television receiver analyzer and continue his medications. * Hypertension: Continue current medication. * Hyperlipidemia: He is not currently taking medication. He will need to discuss this with his PCP and television receiver analyzer. * Lung nodule: Lung nodule was noted on CT. Recommend repeat CT in 6 months to one year. He should have this arranged through his PCP. Patient is stable at this time. He is agreeable to this plan. Micky Dolan Dec 20, 2016 08:59
[2016-12-20] MEDS ORDERED: RESP: ALBUTEROL 2.5 MG/IPRATROPIUM 0.5 MG NEB (PRN) INH (12:00)
--- NOTE | 2016-12-20 12:16 | HHI.DCPOC ---
Discharge Care Plan Diagnosis: (1) Chest pain (2) Cardiomyopathy (3) Hypertension (4) Hyperlipidemia (5) Lung nodule Goals to Promote Your Health CT scan revealed a lung nodule. Discussed this with her PCP as she will need a repeat CT scan within 6 months to reevaluate the lung nodule. * To prevent worsening of your condition and complications * To maintain your health at the optimal level Directions to Meet Your Goals Take your medications as prescribed Follow your dietary instruction Follow activity as directed Keep your appointments as scheduled Take your immunizations and boosters as scheduled If your symptoms worsen call your PCP, if no PCP go to Urgent Care Center or Emergency Room Smoking is Dangerous to Your Health. Avoid second hand smoke Call the 24-hour hour crisis hotline for domestic abuse at Micky Dolan Dec 20, 2016 12:16
--- NOTE | 2016-12-20 15:12 | EKG ---
Date Performed: 12/20/2016 Time Performed: 02:46:23 PTAGE: 56 years EKG: Sinus rhythm WITH FIRST DEGREE AV BLOCK POSSIBLE LEFT ATRIAL ENLARGEMENT MODERATE T-WAVE ABNORMALITY ABNORMAL ECG PREVIOUS TRACING : 12/19/2016 20.27 Since previous tracing, no significant change noted DOCTOR: Austin Neri Interpretating Date/Time 12/20/2016 15:11:10
--- NOTE | 2016-12-20 15:16 | EKG ---
Date Performed: 12/19/2016 Time Performed: 20:27:20 PTAGE: 56 years EKG: Sinus rhythm WITH FIRST DEGREE AV BLOCK MARKED LEFT AXIS DEVIATION LEFT VENTRICULAR HYPERTROPHY AND ST-T CHANGE A BNORMAL ECG INTERPRETATION BASED ON A DEFAULT AGE OF 40 YEARS PREVIOUS TRACING : 07/19/2016 21.49 Compared to previous tracing, T wave changes have imp roved. DOCTOR: Austin Neri Interpretating Date/Time 12/23/2016 07:18:35
[2016-12-21] MEDS ORDERED: ISOSORBIDE MONONITRATE 30 MG TAB PO SCH (07:00)
== END 2016-12-20 16:35 | disposition home or self-care (01) ==
LOC: NEPC 19:40 → NEDA 12-20 00:05 → NEPFCDU 12-20 01:23
PROVIDERS: ADMIT Internal Medicine Interventional Cardiology; ATTEND Internal Medicine Interventional Cardiology
DX: R07.89 Other chest pain (principal); I11.0 Hypertensive heart disease with heart failure; I42.0 Dilated cardiomyopathy; I44.0 Atrioventricular block, first degree; E78.5 Hyperlipidemia, unspecified; I50.9 Heart failure, unspecified; J44.9 Chronic obstructive pulmonary disease, unspecified; K21.9 Gastro-esophageal reflux disease without esophagitis; R91.1 Solitary pulmonary nodule; K76.0 Fatty (change of) liver, not elsewhere classified; K74.60 Unspecified cirrhosis of liver; Z87.891 Personal history of nicotine dependence
CPT/HCPCS: 70450; 71020; 74000; 74177; 80053; 81001; 82140; 82550; 82552; 83690; 83880; 84484; 85025; 85610; 85730; 93005; 96374; 96375; 96376; 99285; G0378; J0360; J1885; Q9967

== ENCOUNTER 2017-08-26 23:36 | Emergency (ER) | payer SELFPAY ==
[~2017-08-26 23:36] MED LIST changes: -ATOR40TA16 PO; -FURO40TA PO; -PROT40TA PO
[2017-08-26 23:41] VITALS: BP 143/90; PULSE 86; RESP 18; O2SAT 96
[2017-08-27] MEDS ORDERED: SODIUM CHLORIDE 0.9% FLUSH 10 ML FLUSH IVF PRN
[2017-08-27 00:19] LABS: AUTOMATED NEUTROPHIL # 3.4 TH/MM3 (1.8-7.7); BASOPHIL % 0.8 % (0.0-2.0); EOSINOPHIL # 0.1 TH/MM3 (0-0.4); EOSINOPHIL % 2.3 % (0.0-4.0); HEMATOCRIT 42.9 % (39.0-51.0); HEMOGLOBIN 14.4 GM/DL (13.0-17.0); LYMPH % 36.5 % (9.0-44.0); LYMPHOCYTE # 2.3 TH/MM3 (1.0-4.8); MEAN CELL VOLUME 89.7 FL (80.0-100.0); MEAN CORPUSCULAR HEMOGLOBIN 30.1 PG (27.0-34.0); MEAN CORPUSCULAR HGB CONC 33.5 % (32.0-36.0); MONO % 6.7 % (0.0-8.0); MONOCYTE # 0.4 TH/MM3 (0-0.9); NEUT % 53.7 % (16.0-70.0); PLATELET COUNT 274 TH/MM3 (150-450); RED BLOOD COUNT 4.78 MIL/MM3 (4.50-5.90); RED CELL DISTRIBUTION WIDTH 14.8 % (11.6-17.2); WHITE BLOOD COUNT 6.4 TH/MM3 (4.0-11.0)
--- NOTE | 2017-08-27 00:20 | RADRPT ---
EXAM DATE: 08/27/2017 12:11 AM EDT AGE/SEX: 57 years / Male INDICATIONS: Shortness of breath. CLINICAL DATA: This is the patient's initial encounter. Patient reports that signs and symptoms have been present for 1 day and indicates a pain score of 0/10. MEDICAL/SURGICAL HISTORY: Hypertension. Congestive heart failure. Chronic obstructive pulmona ry disease. None. COMPARISON: [facility] [place], CHEST SINGLE AP, 07/19/2016. . FINDINGS: Single AP view of the chest. Lung volumes are low. Tortuous thoracic aorta unchanged. Mild cardiac si lhouette enlargement. Mild patchy left lung base opacity likely representing atelectasis. No evidence of pleural effusion or pneumothorax. CONCLUSION: Low lung volumes with mild patchy opacity at the left lung base likely representing atelectasis. Electronically signed by: Celso Barnes MD 08/27/2017 12:19 AM EDT
--- NOTE | 2017-08-27 00:24 | PD ---
HPI Chief Complaint: Dizziness Time Seen by Provider: 23:56 Travel History International Travel<30 days: No Contact w/Intl Traveler<30days: No Traveled to known affect area: No History of Present Illness HPI Is a 57-year-old man who presents to the emergency department who developed some dizziness chest pain weakness while walking home. She is a history of cirrhosis and CHF. He drank multiple large beers this evening at dinner and ate some spicy food by report. [place] bad walking home and called EMS. Appears grossly intoxicated at this point and is unable to articulate much of a history on this. Review of records shows he is a history of CHF cirrhosis. States that he has not been able take any medications in a number of months because of problems with his Medicare or Medicaid. Denies any other complaints right now. History Past Medical History Narrative Medical Arthritis Back problems CHF Cirrhosis Hyperlipidemia GERD Hypertension Tetanus Vaccination: Unknown Influenza Vaccination: No Social History Alcohol Use: Yes Tobacco Use: Yes Allergies-Medications (Allergen,Severity, Reaction): Coded Allergies: Influenza Virus Vaccines (Unverified Allergy, Unknown, 10/29/16) Reported Meds & Prescriptions Reported Meds & Active Scripts Active Advair Diskus Inh (Fluticasone-Salmeterol Inh) 500-50 Mcg/Blist Aer 1 Puff INH BID Rinse mouth after use. Metoprolol Tartrate 50 Mg Tab 50 Mg PO BID Ventolin Hfa 18 GM Inh (Albuterol Sulfate) 90 Mcg/Act Aer 2 Puff INH Q4-6H PRN Isosorbide Mononitrate ER (Isosorbide Mononitrate) 30 Mg Balbina 30 Mg PO DAILY@07 Lisinopril 5 Mg Tab 10 Mg PO DAILY Lactulose Liq (Lactulose) 10 Gm/15 Ml Soln 30 Ml PO Q6H 30 Days Review of Systems ROS Limitations: Intoxication Physical Exam Exam Limitations: Intoxication Narrative GENERAL: Well-appearing 57-year-old man, no acute distress. SKIN: Focused skin assessment warm/dry. HEAD: Atraumatic. Normocephalic. EYES: Pupils equal and round. No scleral icterus. No injection or drainage. ENT: No nasal bleeding or discharge. Mucous membranes pink and moist. NECK: Trachea midline. No JVD. CARDIOVASCULAR: Regular rate and rhythm. No murmur appreciated. RESPIRATORY: No accessory muscle use. Clear to auscultation. Breath sounds equal bilaterally. GASTROINTESTINAL: Abdomen soft, non-tender, nondistended. Hepatic and splenic margins not palpable. MUSCULOSKELETAL: No obvious deformities. No edema. NEUROLOGICAL: Awake and alert, but overtly intoxicated confused. No obvious cranial nerve deficits. Motor grossly within normal limits. Slurred speech. Data Data Last Documented VS Vital Signs Date Time Temp Pulse Resp B/P (MAP) Pulse Ox O2 Delivery O2 Flow Rate FiO2 08/27/17 01:52 82 18 140/83 (102) 97 Orders Orders Electrocardiogram (08/26/17 23:56) Ckmb (Isoenzyme) Profile (08/26/17 23:56) Complete Blood Count With Diff (08/26/17 23:56) Comprehensive Metabolic Panel (08/26/17 23:56) Magnesium (Mg) (08/26/17 23:56) Troponin I (08/26/17 23:56) Chest, Single Ap (08/26/17 23:56) Ecg Monitoring (08/26/17 23:56) Iv Access Insert/Monitor (08/26/17 23:56) Oximetry (08/26/17 23:56) Oxygen Administration (08/26/17 23:56) Sodium Chloride 0.9% Flush (Ns Flush) (08/27/17 00:00) Alcohol (Ethanol) (08/26/17 23:56) CKMB (08/26/17 ) CKMB% (08/26/17 ) Troponin I (08/27/17 01:55) Labs Laboratory Tests Test 08/26/17 00:00 08/27/17 02:35 White Blood Count 6.4 TH/MM3 Red Blood Count 4.78 MIL/MM3 Hemoglobin 14.4 GM/DL Hematocrit 42.9 % Mean Corpuscular Volume 89.7 FL Mean Corpuscular Hemoglobin 30.1 PG Mean Corpuscular Hemoglobin Concent 33.5 % Red Cell Distribution Width 14.8 % Platelet Count 274 TH/MM3 Mean Platelet Volume 8.0 FL Neutrophils (%) (Auto) 53.7 % Lymphocytes (%) (Auto) 36.5 % Monocytes (%) (Auto) 6.7 % Eosinophils (%) (Auto) 2.3 % Basophils (%) (Auto) 0.8 % Neutrophils # (Auto) 3.4 TH/MM3 Lymphocytes # (Auto) 2.3 TH/MM3 Monocytes # (Auto) 0.4 TH/MM3 Eosinophils # (Auto) 0.1 TH/MM3 Basophils # (Auto) 0.0 TH/MM3 CBC Comment DIFF FINAL Differential Comment Blood Urea Nitrogen 9 MG/DL Creatinine 1.14 MG/DL Random Glucose 96 MG/DL Total Protein 8.3 GM/DL Albumin 4.0 GM/DL Calcium Level 8.7 MG/DL Magnesium Level 2.3 MG/DL Alkaline Phosphatase 98 U/L Aspartate Amino Transf (AST/SGOT) 56 U/L Alanine Aminotransferase (ALT/SGPT) 59 U/L Total Bilirubin 0.6 MG/DL Sodium Level 138 MEQ/L Potassium Level 3.8 MEQ/L Chloride Level 104 MEQ/L Carbon Dioxide Level 22.6 MEQ/L Anion Gap 11 MEQ/L Estimat Glomerular Filtration Rate 80 ML/MIN Total Creatine Kinase 339 U/L Creatine Kinase MB 3.7 NG/ML Creatine Kinase MB % 1.1 % Troponin I 0.06 NG/ML 0.05 NG/ML Ethyl Alcohol Level 261 MG/DL [facility] Medical Decision Making Medical Screen Exam Complete: Yes Emergency Medical Condition: Yes Interpretation(s) My review of EKG: Normal sinus rhythm at a slight leftward axis, normal intervals, nonspecific lateral T-wave inversions and ST changes. Compared to previous EKG from December 20, 2016, lateral T-wave inversions appears more pronounced in the precordial leads and the new EKG, but more pronounced in the lateral limb leads in the old EKG. LABS: CBC is unremarkable. CMP fairly unremarkable. Troponin 0.06 repeat 0.05 Alcohol 261 Chest x-ray: Low lung volumes and mild patchy opacity left lung base likely representing atelectasis. Differential Diagnosis Intoxication, dehydration, ACS, volume overload, decompensated CHF, other Narrative Course Medical decision making INITIAL: Very is a 49-year-old man who appears to have pretty significant underlying heart disease, was drinking a fair amount tonight, then began to feel bad walking home. Does not appear to be in any acute distress. Will check labs chest x-ray and also check an alcohol level. Will reassess him when he hayder up. FINAL: Initial troponin 0 0.06, repeat 0.05. Patient sobering up. States he gets this chest pain on a near daily basis. No significant looks well. Certainly is at risk for adverse outcomes. He needs to get started back on his medications and follow with his primary physician. He agrees to return for any worsening symptoms. Diagnosis Primary Impression: Chest pain Additional Impression: Cardiomyopathy Additional Instructions: Follow-up with your primary physician to get reestablished like her heart medications. Return to the emergency department for any new or worsening symptoms. Med/Other Pt SpecificInfo: No Change to Meds Disposition: 01 DISCHARGE HOME Condition: Stable Sonu Quiroz MD Aug 27, 2017 00:24
[2017-08-27 00:42] LABS: ALKALINE PHOSPHATASE 98 U/L (45-117); TOTAL BILIRUBIN ADULT 0.6 MG/DL (0.2-1.0); TOTAL PROTEIN 8.3 GM/DL (6.4-8.2); TROPONIN I 0.06 NG/ML (0.02-0.05)
[2017-08-27 00:51] LABS: ALT (GPT) 59 U/L (12-78); AST (GOT) 56 U/L (15-37); BICARBONATE 22.6 MEQ/L (21.0-32.0); BLOOD UREA NITROGEN 9 MG/DL (7-18); CALCIUM 8.7 MG/DL (8.5-10.1); CHLORIDE 104 MEQ/L (98-107); CREATININE 1.14 MG/DL (0.60-1.30); GLOMERULAR FILTRATION RATE 80 ML/MIN (>89); GLUCOSE,RANDOM 96 MG/DL (74-106); MAGNESIUM 2.3 MG/DL (1.5-2.5); SODIUM (NA) 138 MEQ/L (136-145)
[2017-08-27 01:52] VITALS: BP 140/83; PULSE 82; RESP 18; O2SAT 97
--- NOTE | 2017-08-27 09:04 | EKG ---
Date Performed: 08/26/2017 Time Performed: 23:58:25 PTAGE: 57 years EKG: Sinus rhythm WITH FIRST DEGREE AV BLOCK WITH OCCASIONAL VENTRICULAR PREMATURE COMPLEXES BORDERLINE LEFT AXIS ISMAEL ATION MODERATE VOLTAGE CRITERIA FOR LVH, CONSIDER NORMAL VARIANT NONSPECIFIC T-WAVE ABNORMALITY ABNOR MAL ECG PREVIOUS TRACING : 12/20/2016 02.46 DOCTOR: Sonu Mccloud Interpretating Date/Time 08/27/2017 09:02:44
== END 2017-08-27 06:21 | disposition home or self-care (01) ==
LOC: NEPC 23:36
DX: R07.9 Chest pain, unspecified (principal); I42.9 Cardiomyopathy, unspecified; I11.0 Hypertensive heart disease with heart failure; I50.9 Heart failure, unspecified; E78.5 Hyperlipidemia, unspecified; K74.60 Unspecified cirrhosis of liver; K21.9 Gastro-esophageal reflux disease without esophagitis; Z72.0 Tobacco use; Z79.899 Other long term (current) drug therapy
CPT/HCPCS: 71045; 80053; 80307; 82550; 82552; 83735; 84484; 85025; 93005